=== PATIENT | male | born 1960 | race Caucasian/White ===

== ENCOUNTER 2022-07-31 11:11 | Outpatient (CLI) | payer OTHER, SELFPAY ==
[2022-07-31 12:15] LABS: Albumin* 4.4 g/dL (3.3-5.0)
[2022-07-31 12:16] LABS: Chloride* 92 mmol/L (96-114); Potassium* 3.4 mmol/L (3.6-5.1); Sodium* 136 mmol/L (135-149)
[2022-07-31 12:18] LABS: Aspartate Amino Transferase* 91 U/L (12-35); Bilirubin Total* 0.9 mg/dL (0.1-1.5); Carbon Dioxide* 36 mmol/L (20-32); Cholesterol* 227 mg/dL (90-199); Creatinine* 0.8 mg/dL (0.5-1.5); Estimated Glomerular Filt Rate 101 ml/min; Total Protein* 7.5 g/dL (6.0-8.3)
[2022-07-31 12:19] LABS: Alanine Aminotransferase* 47 U/L (4-50); Alkaline Phosphatase* 103 U/L (40-150); Blood Urea Nitrogen* 8 mg/dL (7-30); Calcium* 9.1 mg/dL (8.4-10.6); HDL Cholesterol* 48 mg/dL (>=40); LDL Cholesterol Calculated 119 mg/dL (<100); Triglycerides* 300 mg/dL (40-149)
[2022-07-31 12:33] LABS: Glucose* 118 mg/dL (60-115)
[2022-07-31 12:49] LABS: PSA Screen* 2.82 ng/mL (0.10-4.00)
== END 2022-07-31 11:12 | disposition home or self-care (01) ==
PROVIDERS: PCP Internal Medicine; Visit Provider Internal Medicine
DX: I10 Essential (primary) hypertension (principal); E78.5 Hyperlipidemia, unspecified; Z12.5 Encounter for screening for malignant neoplasm of prostate
CPT/HCPCS: 80053; 80061; 84153

== ENCOUNTER 2023-05-02 10:43 | Outpatient (CLI) | payer OTHER, SELFPAY ==
[2023-05-02 20:23] VITALS: BP 110/83; PULSE 86; RESP 18; TEMP 36.6; O2SAT 93; BMI 31.1
== END 2023-05-02 10:44 | disposition home or self-care (01) ==
PROVIDERS: PCP Internal Medicine; Visit Provider Internal Medicine
DX: E78.5 Hyperlipidemia, unspecified (principal); I10 Essential (primary) hypertension; F10.90 Alcohol use, unspecified, uncomplicated
CPT/HCPCS: 80053; 82077; 85610

== ENCOUNTER 2023-05-02 16:52 | Inpatient (IN) | payer OTHER, SELFPAY ==
[2023-05-02] VITALS (12 sets, daily range): BP systolic 109–117; BP diastolic 82–84; PULSE 80–86; RESP 16–20; TEMP 36.2–36.7; O2SAT 92–95; BMI 30.5
[2023-05-02] MEDS: 0.9 % SODIUM CHLORIDE 1000 ml 1,000 ML 125 ML IV (17:00)
--- NOTE | 2023-05-02 17:05 | ED_ITS ---
HPI - General Adult General Time Seen by Provider: 17:13 Date Seen: 05/02/23 Chief complaint: Abdominal Pain Stated complaint: low sodium Time Seen by Provider: 05/02/23 17:05 Source: patient and family Mode of arrival: ambulatory Limitations: no limitations History of Present Illness HPI narrative: Antonio is a 63-year-old male past medical history includes Ruff's esophagus, IBS, lower extremity edema, hypertension presents emerged department from home via private car with abdominal pain. Patient had recent labs done in clinic, primary care provider Dr. Leggett called the patient with the results and was concerned. Patient was seen last July for some lower extremity edema he was placed on some Lasix at that time, he is currently on hydrochlorothiazide. Patient states over the last month notice increased abdominal distention and fullness and increased in lower extremity edema, he has also had increasing worsening shortness of breath on exertion, patient denies any chest pain or abdominal pain, patient did have some bloody diarrhea stool a couple weeks ago, bright red but that is resolved, he denies any blood in the stool at this time, his oral intake has decreased, denies any nausea vomiting, no fevers or chills. Patient denies any smoking, he does drink vodka, with 7 up in Gatorade, he states a few a day. No history of any alcohol withdrawals or complications. Patient denies any orthopnea, no history of any heart failure, CAD. He presents with . Related Data Home Medications Medication Instructions Recorded Confirmed tadalafil 5 mg tablet (Cialis) 5 mg PO DAILY Erectile Dysfunction 05/02/23 05/02/23 Previous Rx's Medication Instructions Recorded omeprazole 40 mg capsule,delayed 40 mg PO BID GERD #180 caps 07/31/22 release atenolol 100 mg tablet 100 mg PO DAILY Hypertension #90 12/06/22 tabs furosemide 20 mg tablet 40 mg (2 x 20 mg) PO DAILY@0800 05/07/23 #60 tabs lactulose 10 gram/15 mL oral 20 g (30 mL) PO DAILY #946 mL 05/07/23 solution magnesium oxide 400 mg (241.3 mg 400 mg PO DAILY #30 tabs 05/07/23 magnesium) tablet potassium chloride 10 mEq 20 meq (2 x 10 mEq) PO DAILY #60 05/07/23 capsule,extended release caps spironolactone 100 mg tablet 100 mg PO QAM #30 tabs 05/07/23 Allergies Allergy/AdvReac Type Severity Reaction Status Date / Time No Known Allergies Allergy Verified 05/02/23 17:07 Review of Systems Status of ROS: Reports: 10 or more systems reviewed and unremarkable except as noted in History and below [facility] Medical History (Updated 05/10/23 @ 00:00 by Background Dajanina) Cirrhosis of liver ?K74.60 - Unspecified cirrhosis of liver (ICD-10) Irritable bowel syndrome (09/21/09) ?K58.9 - Irritable bowel syndrome without diarrhea (ICD-10) Ruff's esophagus (09/21/09) ?K22.70 - Ruff's esophagus without dysplasia (ICD-10) Alcohol use disorder ?F10.90 - Alcohol use, unspecified, uncomplicated (ICD-10) Hypertension (09/21/09) ?I10 - Essential (primary) hypertension (ICD-10) Hyperlipidemia ?E78.5 - Hyperlipidemia, unspecified (ICD-10) Diverticular disease of colon (10/21/11) ?K57.30 - Diverticulosis of large intestine without perforation or abscess without bleeding (ICD-10) Compartment syndrome of right lower extremity ?T79.A21A - Traumatic compartment syndrome of right lower extremity, initial encounter (ICD-10) Tubular adenoma ?D36.9 - Benign neoplasm, unspecified site (ICD-10) Erectile dysfunction ?N52.9 - Male erectile dysfunction, unspecified (ICD-10) Surgical History (Updated 05/02/23 @ 19:11 by Nazanin Cornejo MD) S/P colon resection (10/21/11) ?Z90.49 - Acquired absence of other specified parts of digestive tract (ICD- 10) S/P appy (10/21/11) ?Z90.49 - Acquired absence of other specified parts of digestive tract (ICD- 10) Social History What is your current living situation?: I presently have a place to live Problems where you live: no known problems Problems where you live details: None In the past 12 months, utilities in danger of being shut off: no In past 12 months, lack of transportation kept you from medical appts, meetings, work, or getting things needed for daily living: no In the past 12 mos, have been you worried that your food would run out before you had money to buy more?: never true In the past 12 mos, the food you bought just didn't last and you didn't have money to buy more?: never true Highest level of school completed/degree received: high school graduate Smoking Status: Former smoker Do you use any of these nicotine containing products: None Second hand tobacco smoke exposure: No How often do you have a drink containing alcohol: 4 or more times a week Alcohol type: hard liquor Alcohol type details: Vodka in [facility] with 7up How many standard drinks containing alcohol do you have on a typical day: 3 or 4 AUDIT-C Alcohol total score: 5 Non-prescribed substance use: denies use Caffeine: No How often does anyone, including family, friends and others, physically hurt you : never How often does anyone, including family, friends and others, insult or talk down to you: never How often does anyone, including family, friends and others, threaten you with harm: never How often does anyone, including family, friends and others, scream or curse at you: never Little interest or pleasure in doing things: not at all Feeling down, depressed, or hopeless: not at all service: No Exam Narrative: Exam Narrative: General: Obvious distress, lying comfortably, nontoxic in appearance HEENT: Pupils equal round reactive to light, extraocular muscles intact, mild sclera icterus. Neck: No JVD, supple Lungs: Mild bibasilar crackles. Heart; normal sinus rhythm S1-S2 Abdomen: Distended, soft, fluid wave present, bowel sounds present, nontender to palpation Muscle skeletal: +3 pitting edema from his groin to his feet bilaterally, CMS intact Neuro: Alert awake and oriented x3 Const: Vital Signs, click to edit/add: Vital Signs - 24 hr 05/02/23 17:05 05/02/23 19:23 05/02/23 19:24 Temperature 97.2 F L Pulse Rate [Pulse Oximeter] 80 Respiratory Rate 20 16 Blood Pressure [Ri ght Upper Arm] 115/84 109/82 Pulse Oximetry 95 92 Oxygen Delivery Me thod Room Air Room Air Room Air Course Course ED Course: 5:00 PM: AIDET performed. Vitals are normal at this time. Workup will include IV peripheral, 125 mL 0.9 normal saline per hour, CBC from clinic showed white blood cell count of 12.42, hemoglobin 11.8, platelets 401, neutrophils 10.40, INR 1.36, sodium 114, potassium 2.5, chloride 73, glucose 119, calcium 7.2, albumin 3.1, total bilirubin at 3.1, AST 94, normal ALT and alkaline phosphatase. No signs of any SBP or infection at this time patient would need admission sodium correction, patient to receive 40 mEq potassium chloride. Will add acute hepatitis panel, ammonia level and imaging including XR PA and lateral and CT abdomen pelvis with IV contrast. Patient and were in agreement Differential diagnosis include aortic aneurysm, mesentery ischemia, bowel perforation, bowel obstruction, volvulus as well as cholecystitis, hepatitis, pancreatitis, gastritis, GERD, diverticulitis, PUD, pyelonephritis/UTI, urolithiasis, testicular torsion, inflammatory bowel disease. Reevaluation(s) Time of Reevaluation #1: 19:59 Reevaluation #1: XR chest PA and lateral showed no acute cardiopulmonary process, patient was given the above care and did well, awaiting on CT abdomen pelvis with IV contrast, ammonia level within normal limits, spoke with Dr. Cornejo hospitalist on-call she accepts care of the patient to a [facility] surgical bed, patient and were in agreement this plan. Patient and family in agreement. Vital Signs Vital signs: Initial Vital Signs Temperature 97.2 F L 05/02/23 17:05 Temperature Source Temporal Artery Scan 05/02/23 17:05 Respiratory Rate 20 05/02/23 17:05 Blood Pressure 115/84 05/02/23 17:05 Blood Pressure Mean 94 05/02/23 17:05 Blood Pressure Position Supine 05/02/23 17:05 Pulse Oximetry 95 05/02/23 17:05 Oxygen Delivery Method Room Air 05/02/23 17:05 Vital Signs Temperature 97.2 F L 05/02/23 17:05 Respiratory Rate 20 05/02/23 17:05 Blood Pressure 115/84 05/02/23 17:05 Pulse Oximetry 95 05/02/23 17:05 Oxygen Delivery Method Room Air 05/02/23 17:05 Temperature 97.9 F 05/07/23 11:19 Pulse Rate 98 05/07/23 11:19 Respiratory Rate 18 05/07/23 11:19 Blood Pressure 104/88 05/07/23 11:19 Pulse Oximetry 98 05/07/23 11:19 Oxygen Delivery Method Room Air 05/07/23 08:59 Medications Administered Medications: Discontinued Medications Generic Name Dose Route Start Last Admin Trade Name Ananth PRN Reason Stop Dose Admin Atenolol 50 mg 05/07/23 09:00 05/07/23 08:34 Atenolol 50 Mg Tablet PO 50 mg DAILY YFN Administration Calcium Gluconate/Sodium Chloride 1,000 mg 05/04/23 08:25 05/04/23 09:08 Calcium Gluc 1,000mg/50 Ml Bag IVPB 05/04/23 08:26 1,000 mg ONCE ONE Administration Desmopressin Acetate 1 mcg 05/02/23 19:30 05/04/23 19:31 Desmopressin Acetate 4 Mcg/Ml Inj IVP 1 mcg Q6H YFN Administration Enoxaparin Sodium 40 mg 05/02/23 21:00 05/06/23 20:31 Enoxaparin 40 Mg/0.4 Ml Inj SUBCUT 40 mg HS YFN Administration Folic Acid 1 mg 05/03/23 09:00 05/07/23 08:35 Folic Acid 1 Mg Tablet PO 1 mg DAILY YFN Administration Furosemide 20 mg 05/05/23 08:25 05/05/23 09:07 Furosemide 20 Mg Tablet PO 20 mg DAILY@0800 YFN Administration Furosemide 40 mg 05/06/23 08:00 05/06/23 07:58 Furosemide 20 Mg Tablet PO 40 mg DAILY@0800 YFN Administration Furosemide 20 mg 05/05/23 16:40 05/05/23 18:42 Furosemide 20 Mg Tablet PO 05/05/23 16:41 20 mg ONCE ONE Administration Furosemide 80 mg 05/07/23 08:00 05/07/23 08:35 Furosemide 20 Mg Tablet PO 80 mg DAILY@0800 YFN Administration Gabapentin 100 mg 05/02/23 21:00 05/04/23 13:54 Gabapentin 100 Mg Capsule PO 100 mg TID YFN Administration Gabapentin 300 mg 05/04/23 21:00 05/07/23 08:34 Gabapentin 300 Mg Capsule PO 300 mg TID YFN Administration Sodium Chloride 1,000 mls @ 125 mls/hr 05/02/23 17:08 05/02/23 21:09 0.9 % Sodium Chloride 1000 Ml IV 0 mls/hr .Q8H YFN Infusion Sodium Chloride 500 mls @ 30 mls/hr 05/02/23 19:30 05/04/23 13:53 3 % Sodium Chloride 500 Ml IV 30 mls/hr .[id number] YFN Administration Thiamine HCl 250 mg/ Sodium 102.5 mls @ 102.5 mls/hr 05/02/23 21:00 05/05/23 14:07 Chloride IVPB 05/05/23 14:01 102.5 mls/hr TID YFN Administration Magnesium Sulfate 4 gm in 100 mls @ 25 mls/hr 05/02/23 22:04 05/02/23 23:16 Magnesium Iv IVPB 05/03/23 02:03 25 mls/hr ONCE ONE Administration Albumin Human 25 gm in 100 mls @ 100 mls/hr 05/03/23 14:26 05/03/23 18:27 Albumin Human 25% IVPB 05/03/23 15:25 Infused ONCE ONE Infusion Lactulose 20 gm 05/05/23 21:00 05/07/23 08:38 Lactulose 20 Gm/30 Ml PO 20 gm BID YFN Administration Magnesium Oxide 400 mg 05/05/23 09:00 05/07/23 08:35 Magnesium Oxide 400 Mg Tablet PO 400 mg DAILY YFN Administration Melatonin 3 - 6 mg 05/02/23 19:24 05/02/23 21:04 Melatonin 3 Mg Tablet PO 3 mg HS PRN Administration Multivitamins/Minerals 1 tab 05/03/23 09:00 05/07/23 08:33 Multivitamin/Minerals 1 Tablet PO 1 tab DAILY YFN Administration Omeprazole 40 mg 05/03/23 07:00 05/04/23 06:32 Omeprazole [address] PO 40 mg DAILY@0700 YFN Administration Omeprazole 40 mg 05/02/23 21:00 05/07/23 08:34 Omeprazole [address] PO 40 mg BID YFN Administration Pantoprazole Sodium 40 mg 05/02/23 19:24 05/02/23 21:03 Pantoprazole Sodium 40 Mg Inj IVP 05/02/23 19:25 40 mg ONCE ONE Administration Potassium Bicarbonate 50 meq 05/02/23 22:05 05/03/23 09:03 Potassium Bicarb 25 Meq Effervescent Tab PO 50 meq BIDWM YFN Administration Potassium Bicarbonate 25 meq 05/04/23 08:15 05/04/23 09:08 Potassium Bicarb 25 Meq Effervescent Tab PO 05/04/23 10:16 Not Given Q2H YFN Potassium Chloride 40 meq 05/02/23 18:03 05/02/23 18:14 Potassium Chloride 10 Meq Capsule Er PO 05/02/23 18:04 40 meq ONCE ONE Administration Potassium Chloride 20 meq 05/03/23 18:49 05/07/23 08:36 Potassium Chloride 10 Meq Capsule Er PO 20 meq BIDWM YFN Administration Potassium Chloride 20 meq 05/04/23 09:31 05/04/23 11:25 Potassium Chloride 10 Meq Capsule Er PO 05/04/23 09:32 20 meq ONCE ONE Administration Sodium Chloride 5 ml 05/02/23 19:24 05/04/23 01:36 Sodium Chloride 0.9 % (Flush) 10 Ml Syringe IVF 5 ml .FLUSH PRN Administration Sodium Chloride 5 ml 05/02/23 21:00 05/07/23 10:58 Sodium Chloride 0.9 % (Flush) 10 Ml Syringe IVF Not Given BID YFN Sodium Chloride 1 gm 05/03/23 14:35 05/05/23 07:58 Sodium Chloride 1 Gm Tablet PO 1 gm TIDWM YFN Administration Spironolactone 50 mg 05/05/23 09:00 05/05/23 09:07 Spironolactone 25 Mg Tablet PO 50 mg DAILY YFN Administration Spironolactone 100 mg 05/06/23 09:00 05/06/23 07:58 Spironolactone 25 Mg Tablet PO 100 mg DAILY YFN Administration Spironolactone 50 mg 05/05/23 16:40 05/05/23 18:41 Spironolactone 25 Mg Tablet PO 05/05/23 16:41 50 mg ONCE ONE Administration Spironolactone 200 mg 05/07/23 09:00 05/07/23 08:37 Spironolactone 100 Mg Tablet PO 200 mg DAILY YFN Administration Medical Decision Making Lab Data Labs: Lab Results 05/02/23 05/02/23 05/02/23 Range/Units 17:05 17:38 19:07 WBC 12.37 H (4.50-11.00) K/uL RBC 3.25 L (4.30-5.90) m/uL Hgb 11.6 L (13.5-17.5) gm/dL Hct 32.3 L (37.0-53.0) % MCV 99 (80-100) fL MCH 36 H (26-34) pg MCHC 36 (32-36) gm/dL RDW Coeff of Song 13.2 (11.5-15.5) % Plt Count 449 H (140-440) K/uL Neut % (Auto) 84.6 H (42.0-72.0) % Lymph % (Auto) 7.8 L (20-44) % [place] % (Auto) 6.7 (0.0-11.0) % Eos % (Auto) 0.5 (0.0-7.0) % Baso % (Auto) 0.2 (0.0-3.0) % Neut # (Auto) 10.50 H (1.7-7.0) K/uL Lymph # (Auto) 1.00 (0.90-2.90) K/uL [place] # (Auto) 0.80 (0.00-0.90) K/UL Eos # (Auto) 0.10 (0.00-0.50) K/uL Baso # (Auto) 0.00 (0.00-0.30) K/uL Abs Immat Gran (auto) 0.00 (0.00-0.30) K/uL Imm/Tot Granulo (auto) 0.2 % VBG pH 7.532 H (7.32-7.43) VBG pCO2 37 L (40-50) mmHG VBG pO2 33.3 (25-47) mmHG VBG HCO3 31 H (21-28) mmol/L Sodium 114 L* (135-149) mmol/L Potassium 2.5 L* (3.6-5.1) mmol/L Chloride 73 L (96-114) mmol/L Carbon Dioxide 28 (20-32) mmol/L Anion Gap 13 (7-15) mEq/L BUN 12 (7-30) mg/dL Creatinine 0.8 (0.5-1.5) mg/dL Estimated Creat Clear 71.61 Estimated GFR 100 ml/min Glucose 111 (60-115) mg/dL Lactate Cancelled Calcium 7.2 L (8.4-10.6) mg/dL Magnesium 1.3 L (1.5-2.6) mg/dL Total Bilirubin 3.2 H (0.1-1.5) mg/dL Direct Bilirubin 1.1 H (0.0-0.5) mg/dL GGT 176 H (8-55) U/L AST 91 H (12-35) U/L ALT 26 (4-50) U/L Alkaline Phosphatase 190 H (40-150) U/L Ammonia 27.0 (13.1-30.0) umol/L NT-Pro-B Natriuret Pep 754 pg/mL Total Protein 6.7 (6.0-8.3) g/dL Albumin 3.3 (3.3-5.0) g/dL Lipase 263 (23-300) U/L TSH 3.470 (0.270-4.20) uIU/mL Lab Acknowledgement Test Added Discharge Plan Discharge Clinical Impression: Abdominal ascites, Bilateral edema of lower extremity, Hyponatremia, Hypokalemia Patient Disposition: Admitted As Inpatient Condition: Improved Activity Level: Activity as Tolerated Discharge Diet: Regular and 2 gm Sodium
--- NOTE | 2023-05-02 17:24 | CRLHL7_ITS ---
For Patients: As a result of the Century Cures Act, medical imaging exams and procedure reports are released immediately into your electronic medical record. You may view this report before your referring provider. If you have questions, please contact your health care provider. INDICATION: Shortness of breath. TECHNIQUE: Chest radiographs, two views. COMPARISON: Chest radiographs 10/10/2011 FINDINGS: Lines/Tubes/Devices: None. Mediastinum: Normal cardiac silhouette. Tortuous aorta. Lungs: Low lung volumes limit evaluation. Linear bandlike opacifications of the lung bases likely due to subsegmental atelectasis and/or scarring. No focal consolidation. Pleura: No pleural effusions or pneumothorax. Bones: No acute osseous abnormalities. Upper Abdomen: Unremarkable. IMPRESSION: Low lung volumes limit evaluation. No acute cardiopulmonary process. Dictated by Stephen Qureshi MD @ 05/02/2023 7:38:53 PM (Electronically Signed)
--- NOTE | 2023-05-02 17:27 | CRLHL7_ITS ---
For Patients: As a result of the 21st Century Cures Act, medical imaging exams and procedure reports are released immediately into your electronic medical record. You may view this report before your referring provider. If you have questions, please contact your health care provider. INDICATION: massive ascites, elevated Bilirubin levels. no abdomen PAIN TECHNIQUE: CT abdomen and pelvis acquired with 95 cc Isovue 370 IV contrast. COMPARISON: None. FINDINGS: Lower chest: Subsegmental atelectasis remains basilar linear opacities likely subsegmental atelectasis. Atherosclerotic calcifications of the aorta and its branches. Coronary artery calcifications. Mitral annular calcifications. Trace pericardial fluid. ABDOMEN: Liver: Heterogeneous enhancements of the liver. Subcentimeter hypodensity within the right hepatic lobe is too small to characterize. Gallbladder and biliary: Normal gallbladder without radiopaque stone. Normal caliber bile ducts. Spleen: Normal size and enhancement. Pancreas: Normal enhancement without peripancreatic inflammatory changes or ductal dilatation. Adrenal glands: Normal adrenal glands. Kidneys and ureters: Normal enhancement. No radio-opaque calculi. No hydroureteronephrosis. GI tract: The stomach is relatively decompressed. Normal caliber small and large bowel loops. Appendix is not definitively visualized. Partial sigmoid resection and anastomosis. Colonic diverticula without diverticulitis. Vascular structures: Atherosclerotic calcifications of the aorta and its branches. Coronary artery calcifications. Mitral annular calcifications. Recanalized umbilical vein. Patent portal veins. Narrowing of the hepatic veins likely secondary to hepatic edema. Lymph nodes: No lymphadenopathy in the abdomen or pelvis by size criteria. Peritoneum: Large volume abdominal ascites. No focal drainable fluid collection. Small amount of free fluid tracking into the right inguinal canal. PELVIS: Genitourinary system: Urinary bladder is decompressed. SKELETAL STRUCTURES AND SOFT TISSUES: No suspicious lytic or blastic lesions. IMPRESSION: Large volume abdominal ascites. Heterogeneous enhancement of the liver. Narrowing of the hepatic veins. Recanalized umbilical vein. Constellation of findings favor underlying hepatitis with portal hypertension. Recommend correlation with patient clinical history and laboratory values for further assessment. Please note that all CT scans at this facility use dose modulation, iterative reconstruction, and/or weight-based dosing when appropriate to reduce radiation dose to as low as reasonably achievable. Dictated by Marc Daly MD @ 05/02/2023 7:59:14 PM (Electronically Signed)
[2023-05-02 17:34] LABS: Basophils Percent Auto 0.2 % (0.0-3.0); Eosinophils Percent Auto 0.5 % (0.0-7.0); Hematocrit 32.3 % (37.0-53.0); Hemoglobin* 11.6 gm/dL (13.5-17.5); Immature Granulocytes Pct Auto 0.2 %; Lymphocytes Percent Auto 7.8 % (20-44); Mean Corpuscular HGB Conc 36 gm/dL (32-36); Mean Corpuscular Hemoglobin 36 pg (26-34); Mean Corpuscular Volume 99 fL (80-100); Monocytes Percent Auto 6.7 % (0.0-11.0); Neutrophils Percent Auto 84.6 % (42.0-72.0); Platelet Count* 449 K/uL (140-440); RDW Coefficient of Variation % 13.2 % (11.5-15.5); Red Blood Count 3.25 m/uL (4.30-5.90); White Blood Count* 12.37 K/uL (4.50-11.00)
[2023-05-02 17:36] LABS: Slide Review Reflex No
[2023-05-02 17:44] LABS: Albumin* 3.3 g/dL (3.3-5.0)
[2023-05-02 17:45] LABS: Chloride* 73 mmol/L (96-114)
[2023-05-02 17:47] LABS: Aspartate Amino Transferase* 91 U/L (12-35); Bilirubin Direct* 1.1 mg/dL (0.0-0.5); Bilirubin Total* 3.2 mg/dL (0.1-1.5); Carbon Dioxide* 28 mmol/L (20-32); Creatinine* 0.8 mg/dL (0.5-1.5); Est. Creatinine Clearance* 71.61; Estimated Glomerular Filt Rate 100 ml/min; Total Protein* 6.7 g/dL (6.0-8.3)
[2023-05-02 17:48] LABS: Alanine Aminotransferase* 26 U/L (4-50); Alkaline Phosphatase* 190 U/L (40-150); Anion Gap 13 mEq/L (7-15); Blood Urea Nitrogen* 12 mg/dL (7-30); Calcium* 7.2 mg/dL (8.4-10.6); Glucose* 111 mg/dL (60-115); Lipase* 263 U/L (23-300)
[2023-05-02 17:54] LABS: Potassium* 2.5 mmol/L (3.6-5.1); Sodium* 114 mmol/L (135-149)
[2023-05-02] MEDS: POTASSIUM CHLORIDE 10 MEQ CAPSULE ER 40 MEQ PO (18:14)
[2023-05-02 18:22] LABS: NT Pro B Type NatriureticPept* 754 pg/mL
[2023-05-02 19:22] LABS: HCO3 VBG 31 mmol/L (21-28); PCO2 VBG 37 mmHG (40-50); PO2 VBG 33.3 mmHG (25-47); pH VBG 7.532 (7.32-7.43)
[2023-05-02 19:26] LABS: Gamma Glutamyl Transpeptidase* 176 U/L (8-55); Magnesium* 1.3 mg/dL (1.5-2.6)
--- NOTE | 2023-05-02 19:33 | P.IMHP_ITS ---
Hospitalist- H&P: HPI History of Present Illness Date Seen: 05/02/23 Chief complaint: low sodium Narrative: ADMISSION HISTORY AND PHYSICAL - HOSPITALIST Chief Complaint: Dr. Leggett told me to go in; my labs are low HPI: 63-year-old white male with a longstanding history of alcohol use disorder presented to his PCP, Dr. Leggett, this morning for increasing abdominal girth and leg swelling. Patient states that it all began 3-4 weeks ago, in mid to late March. He feels over the last 3 weeks his abdomen has gotten much bigger. His increasing abdominal girth is associated with some shortness of breath and discomfort. The edema in his legs is also getting worse over the last several weeks. He is a daily vodka drinker. He states he used to drink much heavier when he was younger. That he doesn't drink that much anymore. No tobacco. No drug use. He used to work for [employer] and the [employer] department and has been laid off for the last 14 months. He is not working. He has no history of cardiac disease other than hypertension, no history of cancer, no history of liver disease or kidney disease. Denies hx of alcohol withdrawal. Specifically denies fever, abdominal pain, chills, rigors, confusion. Last drink 1 pm 05/01 ER COURSE: Normal saline and oral potassium Abdomen pelvis CT with notable ascites Staff confirmed the severe hyponatremia and hypokalemia, likely decompensated liver failure and asked the hospital medicine team to manage CODE STATUS: FULL CODE EMERGENCY CONTACT PLAN: Juana Dillard? ?Rel to [facility]? [phone] I've updated the PFSH, medications and allergies in the Expanse tabs. INVESTIGATIONS: LABS/MICRO/ECG/IMAGING Weight 89.8 kg, blood pressure 109/71 this morning in clinic with Dr. eLggett Weight 90.7 kg, blood pressure 132/84 in July [address] Springer CBC reflects a mild leukocytosis 12.4, normal MCV. Anemic at 11.6, platelet count slightly reactive 449. INR 1.4 Sodium this morning was 115 at a clinic visit, 114 at ER presentation. Previous sodium 136 in July of 2022 Potassium is 3.1 this morning, 2.5 by the time he got to the ED Total bilirubin 3.2, direct bilirubin 1.1, AST 91, ALT 26, alk-phos 190 Ammonia level 27 BNP 754 Lipase 263 Blood gas 7.5, pCO2 37, bicarb 31 consistent with a metabolic alkalosis Pending GGT Pending TSH 2 blood cultures sent to the lab EKG NSR, low voltage CT Abd/Pelvis Large volume abdominal ascites. Heterogeneous enhancement of the liver. Narrowing of the hepatic veins. Recanalized umbilical vein. Constellation of findings favor underlying hepatitis with portal hypertension. Recommend correlation with patient clinical history and laboratory values for further assessment. REVIEW OF SYSTEMS: 12-point ROS completed with patient and negative unless otherwise stated in HPI or below. PHYSICAL EXAM: CONSTITUTIONAL: Conversive, good historian. A/O. Knows setting and context. makes a joke. VITAL SIGNS: see record. HEENT: Normocephalic, atraumatic. PERRL, EOMI, conjunctivae pink, no scleral icterus. Ears and nose externally normal. Pharynx normal. NECK: No JVD. No carotid bruit, no thyromegaly, no adenopathy. CHEST: Clear to auscultation bilaterally HEART: S1 and S2 normal. No harsh murmurs. Edema 3+ to mid thigh ABDOMEN: markedly distended - tense MUSCULOSKELETAL: No gross joint deformity or swelling. NEURO: Cranial nerves intact. Grossly intact. No asymmetric findings. SKIN: No rashes, petechiae, concerning changes PSYCHIATRIC: Euthymic. ADMIT TO MEDSURG: CCU DVT: Lovenox GI: PO intake with fluid restriction Time spent: Today I spent 75 minutes seeing the patient, discussing the patient with ER staff, reviewing Expanse and EPIC notes/diagnostics, discussing the care plan with our care time that includes social work, PT/OT, pharmacy, RT, senior care and documenting my impressions and plan in the medical record. [facility] Medical History (Updated 05/02/23 @ 22:10 by Nazanin Cornejo MD) Irritable bowel syndrome (09/21/09) ?K58.9 - Irritable bowel syndrome without diarrhea (ICD-10) Ruff's esophagus (09/21/09) ?K22.70 - Ruff's esophagus without dysplasia (ICD-10) Alcohol use disorder ?F10.90 - Alcohol use, unspecified, uncomplicated (ICD-10) Hypertension (09/21/09) ?I10 - Essential (primary) hypertension (ICD-10) Hyperlipidemia ?E78.5 - Hyperlipidemia, unspecified (ICD-10) Diverticular disease of colon (10/21/11) ?K57.30 - Diverticulosis of large intestine without perforation or abscess without bleeding (ICD-10) Compartment syndrome of right lower extremity ?T79.A21A - Traumatic compartment syndrome of right lower extremity, initial encounter (ICD-10) Tubular adenoma ?D36.9 - Benign neoplasm, unspecified site (ICD-10) Erectile dysfunction ?N52.9 - Male erectile dysfunction, unspecified (ICD-10) Surgical History (Updated 05/02/23 @ 19:11 by Nazanin Cornejo MD) S/P colon resection (10/21/11) ?Z90.49 - Acquired absence of other specified parts of digestive tract (ICD- 10) S/P appy (10/21/11) ?Z90.49 - Acquired absence of other specified parts of digestive tract (ICD- 10) Social History What is your current living situation?: I presently have a place to live Problems where you live: no known problems Problems where you live details: None In the past 12 months, utilities in danger of being shut off: no In past 12 months, lack of transportation kept you from medical appts, meetings, work, or getting things needed for daily living: no In the past 12 mos, have been you worried that your food would run out before you had money to buy more?: never true In the past 12 mos, the food you bought just didn't last and you didn't have money to buy more?: never true Highest level of school completed/degree received: high school graduate Smoking Status: Former smoker Do you use any of these nicotine containing products: None Second hand tobacco smoke exposure: No How often do you have a drink containing alcohol: 4 or more times a week Alcohol type: hard liquor Alcohol type details: Vodka in Gatorade with 7up How many standard drinks containing alcohol do you have on a typical day: 3 or 4 AUDIT-C Alcohol total score: 5 Non-prescribed substance use: denies use Caffeine: No How often does anyone, including family, friends and others, physically hurt you : never How often does anyone, including family, friends and others, insult or talk down to you: never How often does anyone, including family, friends and others, threaten you with harm: never How often does anyone, including family, friends and others, scream or curse at you: never Little interest or pleasure in doing things: not at all Feeling down, depressed, or hopeless: not at all service: No Meds Home Medications and Allergies Home Medications Medication Instructions Recorded Confirmed Type aspirin 81 mg chewable tablet 81 mg PO DAILY 12/08/21 05/02/23 History tadalafil 5 mg tablet (Cialis) 5 mg PO DAILY Erectile Dysfunction 05/02/23 05/02/23 History Allergies Allergy/AdvReac Type Severity Reaction Status Date / Time No Known Allergies Allergy Verified 05/02/23 17:07 Exam Const: Vital Signs, click to edit/add: Vital Signs - 24 hr 05/02/23 17:05 05/02/23 19:23 05/02/23 19:24 Temperature 97.2 F L Pulse Rate [Pulse Oximeter] 80 Respiratory Rate 20 16 Blood Pressure [Ri ght Upper Arm] 115/84 109/82 Pulse Oximetry 95 92 Oxygen Delivery Me thod Room Air Room Air Room Air Hospitalist - H&P: Result Labs Labs: Short CBC 05/02/23 Range/Units 17:05 WBC 12.37 H (4.50-11.00) K/uL Hgb 11.6 L (13.5-17.5) gm/dL Hct 32.3 L (37.0-53.0) % Plt Count 449 H (140-440) K/uL BMP 05/02/23 17:05 Sodium 114 L* Potassium 2.5 L* Chloride 73 L Carbon Dioxide 28 BUN 12 Creatinine 0.8 Glucose 111 Calcium 7.2 L Liver Function 05/02/23 Range/Units 17:05 Total Bilirubin 3.2 H (0.1-1.5) mg/dL Direct Bilirubin 1.1 H (0.0-0.5) mg/dL AST 91 H (12-35) U/L ALT 26 (4-50) U/L Alkaline Phosphatase 190 H (40-150) U/L Albumin 3.3 (3.3-5.0) g/dL Assessment and Plan Assessment and plan (1) Hyponatremia: Problem comment: -received normal saline in the ED. given his risk for osmotic demyelination syndrome (concurrent hypokalemia, alcohol use disorder, liver disease) I will infuse 3% saline with IV desmopressin. -CCU status -follow electrolytes hourly and then space out as indicated -fluid restriction, salt tabs, oral potassium, IV magnesium. Status: Acute (2) Hypokalemia: Problem comment: -received p.o., single dose, in the ED -will follow with IV/PO replacement as necessary Status: Acute (3) Hypomagnesemia: Problem comment: -IV replacement Status: Acute (4) Liver disease: Problem comment: -new diagnosis - likely from chronic alcohol use. -MELD 3.0 05/02 (upon presentation/admission) 21 -will need diagnostic and therapeutic paracentesis -ultrasound in the morning -use of loop diuretics and spironolactone as an inpatient once electrolytes have stabilized -concern for SBP is low given clinical presentation, lack of fever/pain Status: Acute (5) Alcohol use disorder: Problem comment: -daily vodka drinker (last drink 1 pm 05/01/23) -thiamine, multivitamin, folate replacement -[facility] protocols with ativan -initiating gabapentin 100 mg t.i.d. -consider early use of fixed/scheduled phenobarbital Status: Acute (6) Abdominal ascites: Problem comment: -general surg consult for paracentsis -furosemide/spironolactone regimen to begin once sodium/potassium/mag are not critically low -consider culturing his abdominal ascites, not currently on antibiotics -IV PPI -Chad wrap compression to his legs -fluid restriction Status: Acute (7) Bilateral edema of lower extremity: Problem comment: -see #5 Status: Acute (8) Hypertension: Problem comment: -amlodipine, atenolol, hydrochlorothiazide (all on hold as of admission 05/02) -certainly will hold the hydrochlorothiazide going forward. Status: Acute (9) Ruff's esophagus: Problem comment: -has had surveillance EGDS -on PPI Status: Acute
[2023-05-02] MEDS: DESMOPRESSIN ACETATE 4 MCG/ML inj 1 MCG IVP (21:01)
[2023-05-02] MEDS: PANTOPRAZOLE SODIUM 40 MG INJ IVP (21:03)
[2023-05-02] MEDS: MELATONIN 3 MG TABLET PO (21:04)
[2023-05-02] MEDS: ENOXAPARIN 40 MG/0.4 ML INJ SUBCUT (21:04)
[2023-05-02] MEDS: GABAPENTIN 100 MG CAPSULE PO (21:04)
[2023-05-02] MEDS: SODIUM CHLORIDE 0.9 % (FLUSH) 10 ML SYRINGE 5 ML IVF (21:06)
[2023-05-02 21:16] LABS: Carbon Dioxide* 31 mmol/L (20-32); Creatinine* 0.8 mg/dL (0.5-1.5); Est. Creatinine Clearance* 71.61; Estimated Glomerular Filt Rate 100 ml/min
[2023-05-02 21:17] LABS: Blood Urea Nitrogen* 11 mg/dL (7-30); Glucose* 104 mg/dL (60-115)
[2023-05-02 21:20] LABS: Sodium* 115 mmol/L (135-149)
[2023-05-02 21:21] LABS: Anion Gap 9 mEq/L (7-15); Chloride* 75 mmol/L (96-114); Potassium* 3.1 mmol/L (3.6-5.1)
[2023-05-02] MEDS: THIAMINE 250 MG in 0.9 % SODIUM CHLORIDE 100 ml 100 ML 102.5 MG IVPB (21:58)
[2023-05-02] MEDS: POTASSIUM BICARB 25 MEQ EFFERVESCENT TAB 50 MEQ PO (23:14)
[2023-05-02] MEDS: OMEPRAZOLE 20 MG CAPSULE DR 40 MG PO (23:15)
[2023-05-02] MEDS: MAGNESIUM IV 4 GM/100 ML PIGGYBACK IVPB (23:16)
[2023-05-03] VITALS (23 sets, daily range): BP systolic 92–112; BP diastolic 52–78; PULSE 85–95; RESP 16–20; TEMP 36.7–37.6; O2SAT 90–94
[2023-05-03 00:02] LABS: Amphetamine Screen Urine Negative (Negative); Barbiturate Screen Urine Negative (Negative); Benzodiazepines Screen Urine Negative (Negative); Cannabinoid Screen Urine Negative (Negative); Cocaine Screen Urine Negative (Negative); Methadone Screen Urine Negative (Negative); Methamphetamines Screen Urine Negative (Negative); Opiate Screen Urine Negative (Negative); Oxycodone Screen Urine Negative (Negative); Phencyclidine Screen Urine Negative (Negative); Tricyclic Antidepressant Urine Negative (Negative)
[2023-05-03 01:00] LABS: Chloride* 78 mmol/L (96-114); Potassium* 3.3 mmol/L (3.6-5.1)
[2023-05-03 01:03] LABS: Anion Gap 11 mEq/L (7-15); Blood Urea Nitrogen* 12 mg/dL (7-30); Carbon Dioxide* 27 mmol/L (20-32); Creatinine* 0.8 mg/dL (0.5-1.5); Est. Creatinine Clearance* 71.61; Estimated Glomerular Filt Rate 100 ml/min; Glucose* 111 mg/dL (60-115)
[2023-05-03 01:04] LABS: Sodium* 116 mmol/L (135-149)
[2023-05-03] MEDS: DESMOPRESSIN ACETATE 4 MCG/ML inj 1 MCG IVP ×4 (01:27→19:08)
[2023-05-03 02:54] LABS: Chloride* 79 mmol/L (96-114)
[2023-05-03 02:55] LABS: Potassium* 3.4 mmol/L (3.6-5.1)
[2023-05-03 02:57] LABS: Creatinine* 0.8 mg/dL (0.5-1.5); Est. Creatinine Clearance* 71.61; Estimated Glomerular Filt Rate 100 ml/min
[2023-05-03 02:58] LABS: Anion Gap 10 mEq/L (7-15); Blood Urea Nitrogen* 12 mg/dL (7-30); Carbon Dioxide* 28 mmol/L (20-32); Glucose* 112 mg/dL (60-115)
[2023-05-03 02:59] LABS: Sodium* 117 mmol/L (135-149)
--- NOTE | 2023-05-03 03:38 | PC.NURSE ---
Pt came to floor @ 1940. Na was 114. Dr stopped NS @ 125 and started 3% Hypertonic NS at 30ml/hr. Intent to gradually increase Na without large bumps. Pt up IND/SBA to BR voiding [place] colored urine. Pt Abdomen very large with ascites. Reporting Zero pain. Pt very irritated with staff for interruptions in sleep due to cares and blood draws. Pt reports drinking 3-4 Vodka drinks per day. CIWAs unremarkable to this point. Afebrile. Tele NSR.
[2023-05-03] MEDS: OMEPRAZOLE 20 MG CAPSULE DR 40 MG PO ×2 (05:13→21:29)
[2023-05-03] MEDS: SODIUM CHLORIDE 0.9 % (FLUSH) 10 ML SYRINGE 5 ML IVF ×2 (08:07→21:30)
--- NOTE | 2023-05-03 08:07 | PM.GSCN ---
History of Present Illness Consult details Date Seen: 05/03/23 Consult date: 05/03/23 Narrative: Patient admitted for new onset abdominal ascites, hyponatremia and bilateral lower extremity edema. He does have a heavy drinking history. He reports that he started to cut back a few months ago, but still has ?a drink per day?. A drink for him is about 2 shots. He has never had anything like this before. He started to notice that his belly was getting bigger about 1 month earlier and it continued to increase in size. He denies any current abdominal pain, shortness of breath or fevers. He is alert and oriented. His abdominal surgical history is positive for a colectomy secondary to diverticulitis. Review of Systems Status of ROS: Reports: 6 or more systems reviewed and unremarkable except as noted in History and below [facility] Medical History (Updated 05/02/23 @ 22:10 by Nazanin Cornejo MD) Irritable bowel syndrome (09/21/09) ?K58.9 - Irritable bowel syndrome without diarrhea (ICD-10) Ruff's esophagus (09/21/09) ?K22.70 - Ruff's esophagus without dysplasia (ICD-10) Alcohol use disorder ?F10.90 - Alcohol use, unspecified, uncomplicated (ICD-10) Hypertension (09/21/09) ?I10 - Essential (primary) hypertension (ICD-10) Hyperlipidemia ?E78.5 - Hyperlipidemia, unspecified (ICD-10) Diverticular disease of colon (10/21/11) ?K57.30 - Diverticulosis of large intestine without perforation or abscess without bleeding (ICD-10) Compartment syndrome of right lower extremity ?T79.A21A - Traumatic compartment syndrome of right lower extremity, initial encounter (ICD-10) Tubular adenoma ?D36.9 - Benign neoplasm, unspecified site (ICD-10) Erectile dysfunction ?N52.9 - Male erectile dysfunction, unspecified (ICD-10) Surgical History (Updated 05/02/23 @ 19:11 by Nazanin Cornejo MD) S/P colon resection (10/21/11) ?Z90.49 - Acquired absence of other specified parts of digestive tract (ICD-10) S/P appy (10/21/11) ?Z90.49 - Acquired absence of other specified parts of digestive tract (ICD-10) Social History What is your current living situation?: I presently have a place to live Problems where you live: no known problems Problems where you live details: None In the past 12 months, utilities in danger of being shut off: no In past 12 months, lack of transportation kept you from medical appts, meetings, work, or getting things needed for daily living: no In the past 12 mos, have been you worried that your food would run out before you had money to buy more?: never true In the past 12 mos, the food you bought just didn't last and you didn't have money to buy more?: never true Highest level of school completed/degree received: high school graduate Smoking Status: Former smoker Do you use any of these nicotine containing products: None Second hand tobacco smoke exposure: No How often do you have a drink containing alcohol: 4 or more times a week Alcohol type: hard liquor Alcohol type details: Vodka in [facility] with 7up How many standard drinks containing alcohol do you have on a typical day: 3 or 4 AUDIT-C Alcohol total score: 5 Non-prescribed substance use: denies use Caffeine: No How often does anyone, including family, friends and others, physically hurt you: never How often does anyone, including family, friends and others, insult or talk down to you: never How often does anyone, including family, friends and others, threaten you with harm: never How often does anyone, including family, friends and others, scream or curse at you: never Little interest or pleasure in doing things: not at all Feeling down, depressed, or hopeless: not at all service: No Meds Home Medications and Allergies Home Medications Medication Instructions Recorded Confirmed Type aspirin 81 mg chewable tablet 81 mg PO DAILY 12/08/21 05/02/23 History tadalafil 5 mg tablet (Cialis) 5 mg PO DAILY Erectile Dysfunction 05/02/23 05/02/23 History Allergies Allergy/AdvReac Type Severity Reaction Status Date / Time No Known Allergies Allergy Verified 05/02/23 17:07 Exam Narrative: Exam Narrative: General: Alert and oriented, no acute distress. Nontoxic Respiratory: Equal breath rise, maintained on room air CV: Well perfused Abdomen: Significant girth with marked distension, tense abdomen. Lower midline incision well healed. Positive fluid shift. Const: Vital Signs, click to edit/add: Vital Signs - 24 hr 05/02/23 17:05 05/02/23 19:23 05/02/23 19:24 Temperature 97.2 F L Pulse Rate Pulse Rate [Left R adial] Pulse Rate [Pulse Oximeter] 80 Respiratory Rate 20 16 Blood Pressure [Le ft Arm] Blood Pressure [Ri ght Upper Arm] 115/84 109/82 Pulse Oximetry 95 92 Oxygen Delivery Me thod Room Air Room Air Room Air 05/02/23 21:12 05/02/23 21:13 05/02/23 21:15 Temperature 97.2 F L 97.2 F L Pulse Rate Pulse Rate [Left R adial] Pulse Rate [Pulse Oximeter] Respiratory Rate 18 18 18 Blood Pressure [Le ft Arm] Blood Pressure [Ri ght Upper Arm] Pulse Oximetry 93 93 93 Oxygen Delivery Me thod Room Air Room Air Room Air 05/02/23 21:15 05/02/23 21:17 05/02/23 21:24 Temperature 97.2 F L Pulse Rate 85 Pulse Rate [Left R adial] 86 Pulse Rate [Pulse Oximeter] Respiratory Rate 18 Blood Pressure [Le ft Arm] 110/83 Blood Pressure [Ri ght Upper Arm] Pulse Oximetry 93 93 Oxygen Delivery Me thod Room Air 05/02/23 21:31 05/02/23 22:09 05/02/23 22:28 Temperature 97.2 F L Pulse Rate Pulse Rate [Left R adial] 85 85 Pulse Rate [Pulse Oximeter] Respiratory Rate 18 18 Blood Pressure [Le ft Arm] 110/83 Blood Pressure [Ri ght Upper Arm] Pulse Oximetry 93 93 Oxygen Delivery Me thod Room Air Room Air 05/02/23 23:41 05/03/23 03:26 Temperature 98.1 F 98.1 F Pulse Rate Pulse Rate [Left R adial] 81 86 Pulse Rate [Pulse Oximeter] Respiratory Rate 18 16 Blood Pressure [Le ft Arm] 117/82 Blood Pressure [Ri ght Upper Arm] Pulse Oximetry 93 92 Oxygen Delivery Me thod Room Air Room Air Results Labs Labs: Abnormal lab results 05/02/23 05/02/23 05/02/23 Range/Units 17:05 17:38 20:54 WBC 12.37 H (4.50-11.00) K/uL RBC 3.25 L (4.30-5.90) m/uL Hgb 11.6 L (13.5-17.5) gm/dL Hct 32.3 L (37.0-53.0) % MCH 36 H (26-34) pg Plt Count 449 H (140-440) K/uL Neut % (Auto) 84.6 H (42.0-72.0) % Lymph % (Auto) 7.8 L (20-44) % Neut # (Auto) 10.50 H (1.7-7.0) K/uL VBG pH 7.532 H (7.32-7.43) VBG pCO2 37 L (40-50) mmHG VBG HCO3 31 H (21-28) mmol/L Sodium 114 L* 115 L* (135-149) mmol/L Potassium 2.5 L* 3.1 L (3.6-5.1) mmol/L Chloride 73 L 75 L (96-114) mmol/L Calcium 7.2 L 7.0 L (8.4-10.6) mg/dL Magnesium 1.3 L (1.5-2.6) mg/dL Total Bilirubin 3.2 H (0.1-1.5) mg/dL Direct Bilirubin 1.1 H (0.0-0.5) mg/dL GGT 176 H (8-55) U/L AST 91 H (12-35) U/L Alkaline Phosphatase 190 H (40-150) U/L 05/03/23 05/03/23 Range/Units 00:20 02:35 WBC (4.50-11.00) K/uL RBC (4.30-5.90) m/uL Hgb (13.5-17.5) gm/dL Hct (37.0-53.0) % MCH (26-34) pg Plt Count (140-440) K/uL Neut % (Auto) (42.0-72.0) % Lymph % (Auto) (20-44) % Neut # (Auto) (1.7-7.0) K/uL VBG pH (7.32-7.43) VBG pCO2 (40-50) mmHG VBG HCO3 (21-28) mmol/L Sodium 116 L* 117 L* (135-149) mmol/L Potassium 3.3 L 3.4 L (3.6-5.1) mmol/L Chloride 78 L 79 L (96-114) mmol/L Calcium 7.0 L 7.0 L (8.4-10.6) mg/dL Magnesium (1.5-2.6) mg/dL Total Bilirubin (0.1-1.5) mg/dL Direct Bilirubin (0.0-0.5) mg/dL GGT (8-55) U/L AST (12-35) U/L Alkaline Phosphatase (40-150) U/L Diabetes panel 05/02/23 05/02/23 05/03/23 Range/Units 17:05 20:54 00:20 Sodium 114 L* 115 L* 116 L* (135-149) mmol/L Potassium 2.5 L* 3.1 L 3.3 L (3.6-5.1) mmol/L Chloride 73 L 75 L 78 L (96-114) mmol/L Carbon Dioxide 28 31 27 (20-32) mmol/L BUN 12 11 12 (7-30) mg/dL Creatinine 0.8 0.8 0.8 (0.5-1.5) mg/dL Glucose 111 104 111 (60-115) mg/dL Calcium 7.2 L 7.0 L 7.0 L (8.4-10.6) mg/dL AST 91 H (12-35) U/L ALT 26 (4-50) U/L Alkaline Phosphatase 190 H (40-150) U/L Total Protein 6.7 (6.0-8.3) g/dL Albumin 3.3 (3.3-5.0) g/dL 05/03/23 Range/Units 02:35 Sodium 117 L* (135-149) mmol/L Potassium 3.4 L (3.6-5.1) mmol/L Chloride 79 L (96-114) mmol/L Carbon Dioxide 28 (20-32) mmol/L BUN 12 (7-30) mg/dL Creatinine 0.8 (0.5-1.5) mg/dL Glucose 112 (60-115) mg/dL Calcium 7.0 L (8.4-10.6) mg/dL AST (12-35) U/L ALT (4-50) U/L Alkaline Phosphatase (40-150) U/L Total Protein (6.0-8.3) g/dL Albumin (3.3-5.0) g/dL Thyroid panel 05/02/23 Range/Units 17:05 TSH 3.470 (0.270-4.20) uIU/mL Calcium panel 05/02/23 05/02/23 05/03/23 Range/Units 17:05 20:54 00:20 Calcium 7.2 L 7.0 L 7.0 L (8.4-10.6) mg/dL Albumin 3.3 (3.3-5.0) g/dL 05/03/23 Range/Units 02:35 Calcium 7.0 L (8.4-10.6) mg/dL Albumin (3.3-5.0) g/dL Pituitary panel 05/02/23 05/02/23 05/03/23 Range/Units 17:05 20:54 00:20 Sodium 114 L* 115 L* 116 L* (135-149) mmol/L Potassium 2.5 L* 3.1 L 3.3 L (3.6-5.1) mmol/L Chloride 73 L 75 L 78 L (96-114) mmol/L Carbon Dioxide 28 31 27 (20-32) mmol/L BUN 12 11 12 (7-30) mg/dL Creatinine 0.8 0.8 0.8 (0.5-1.5) mg/dL Glucose 111 104 111 (60-115) mg/dL Calcium 7.2 L 7.0 L 7.0 L (8.4-10.6) mg/dL TSH 3.470 (0.270-4.20) uIU/mL 05/03/23 Range/Units 02:35 Sodium 117 L* (135-149) mmol/L Potassium 3.4 L (3.6-5.1) mmol/L Chloride 79 L (96-114) mmol/L Carbon Dioxide 28 (20-32) mmol/L BUN 12 (7-30) mg/dL Creatinine 0.8 (0.5-1.5) mg/dL Glucose 112 (60-115) mg/dL Calcium 7.0 L (8.4-10.6) mg/dL TSH (0.270-4.20) uIU/mL Adrenal panel 05/02/23 05/02/23 05/03/23 Range/Units 17:05 20:54 00:20 Sodium 114 L* 115 L* 116 L* (135-149) mmol/L Potassium 2.5 L* 3.1 L 3.3 L (3.6-5.1) mmol/L Chloride 73 L 75 L 78 L (96-114) mmol/L Carbon Dioxide 28 31 27 (20-32) mmol/L BUN 12 11 12 (7-30) mg/dL Creatinine 0.8 0.8 0.8 (0.5-1.5) mg/dL Glucose 111 104 111 (60-115) mg/dL Calcium 7.2 L 7.0 L 7.0 L (8.4-10.6) mg/dL Total Bilirubin 3.2 H (0.1-1.5) mg/dL AST 91 H (12-35) U/L ALT 26 (4-50) U/L Alkaline Phosphatase 190 H (40-150) U/L Total Protein 6.7 (6.0-8.3) g/dL Albumin 3.3 (3.3-5.0) g/dL 05/03/23 Range/Units 02:35 Sodium 117 L* (135-149) mmol/L Potassium 3.4 L (3.6-5.1) mmol/L Chloride 79 L (96-114) mmol/L Carbon Dioxide 28 (20-32) mmol/L BUN 12 (7-30) mg/dL Creatinine 0.8 (0.5-1.5) mg/dL Glucose 112 (60-115) mg/dL Calcium 7.0 L (8.4-10.6) mg/dL Total Bilirubin (0.1-1.5) mg/dL AST (12-35) U/L ALT (4-50) U/L Alkaline Phosphatase (40-150) U/L Total Protein (6.0-8.3) g/dL Albumin (3.3-5.0) g/dL All other labs normal. Imaging Abdomen CT scan report/results: report reviewed and image reviewed Assessment and Plan Assessment and plan (1) Abdominal ascites: Problem comment: -general surg consult for paracentsis -furosemide/spironolactone regimen to begin once sodium/potassium/mag are not critically low -consider culturing his abdominal ascites, not currently on antibiotics -IV PPI -Chad wrap compression to his legs -fluid restriction Status: Acute Plan Patient is a 63-year-old male with newly diagnosed liver disease and evidence of significant abdominal ascites on physical exam and CT imaging. Risks and benefits of paracentesis were discussed at length with the patient. He does understand that liver disease does increase your risk of bleeding. This morning his platelets are greater than 400 with INR last night in the emergency department 1.3. He also understands the risk of infection and damage to surrounding structures. Will plan to drain off as much fluid as patient tolerates and send labs to assist with diagnosis. Procedure was tolerated well without immediate complication. It was able to pull off 80485 mL clear yellow tinged serous fluid. Sample was sent for diagnostic labs. General Surgery Procedures Paracentesis Time out performed: Yes Imaging guidance used: Yes Indication: Ascites Procedure: therapeutic paracentesis Location: RLQ Local anesthetic used: lidocaine 1% Amount of anesthesia used (ml): 4 Bedside ultrasound used: yes, Ascites confirmed and location marked Preparation: sterile prep and drape Amount of fluid obtained (ml): 12,200 Fluid: clear (serous) Post procedure exam: awake, alert, normal BP, normal HR and normal SpO2 Patient tolerated procedure: well and no complications Complications: none
[2023-05-03 08:24] LABS: Sodium* 119 mmol/L (135-149)
[2023-05-03] MEDS: THIAMINE 250 MG in 0.9 % SODIUM CHLORIDE 100 ml 100 ML 102.5 MG IVPB ×3 (09:03→21:31)
[2023-05-03] MEDS: FOLIC ACID 1 MG TABLET PO (09:03)
[2023-05-03] MEDS: POTASSIUM BICARB 25 MEQ EFFERVESCENT TAB 50 MEQ PO (09:03)
[2023-05-03] MEDS: MULTIVITAMIN/MINERALS 1 TABLET 1 TAB PO (09:04)
[2023-05-03] MEDS: GABAPENTIN 100 MG CAPSULE PO ×3 (09:04→21:29)
--- NOTE | 2023-05-03 10:50 | PM.IMPN1 ---
Progress Note: A&P Assessment and plan (1) Abdominal ascites: Problem details: - new - paracentesis with Dr. Montiel of General Surgery on 05/03 (12L + 200mL), cultures ordered and pending - furosemide/spironolactone regimen to begin once BP stabilizes post-procedure and sodium/potassium/mag are not critically low - IV PPI - Chad wrap compression to his legs - fluid restriction - no antibiotics indicated at this time Status: Acute (2) Hyponatremia: Problem details: - high risk for osmotic demyelination syndrome (concurrent hypokalemia, alcohol use disorder, liver disease), on 3% saline with IV desmopressin, following NA closely - fluid restriction, salt tabs, oral potassium, IV magnesium. Status: Acute (3) Hypokalemia: Problem details: - received p.o., single dose, in the ED - will follow with IV/PO replacement as necessary Status: Acute (4) Alcohol use disorder: Problem details: -daily vodka drinker (last drink 1 pm 05/01/23) -thiamine, multivitamin, folate replacement -CIWA protocols with ativan -initiated gabapentin 100 mg TID (05/02) -consider early use of fixed/scheduled phenobarbital (not requiring as of 05/03 am) Status: Acute (5) Hypertension: Problem details: - on outpatient amlodipine, atenolol, hydrochlorothiazide (all on hold as of admission 05/02) Status: Acute (6) Ruff's esophagus: Problem details: -has had surveillance EGDS -on PPI Status: Acute Plan - per above - Lovenox for ppx Subjective Date Seen: 05/03/23 Interval history: Antonio was admitted last night for new onset ascites and diagnosis of liver disease, likely related to chronic alcohol overuse. He is on hypertonic saline for hyponatremia, had a paracentesis with Dr. Montiel this morning and 12L + 200mL taken off during procedure. Patient remains afebrile, mild hypotension following paracentesis (asymptomatic). No symptoms of ETOH withdrawal, no concerns for hospitalist team this morning. Exam Narrative: Exam Narrative: GEN: Alert and oriented, nontoxic, laying comfortably in bed HEENT: No scleral icterus, strabismus, baseline and stable CV: RRR, soft systolic murmur heard best at left upper sternal border without concerning features R: LCTA bilaterally without concerning wheezing Ab: substantial ascites + fluid wave, significant improvement post-paracentesis Ext: 2-3+ pitting edema BLE Neuro: Nonfocal Psych: Appropriate Const: Vital Signs, click to edit/add: Vital Signs - 24 hr 05/02/23 17:05 05/02/23 19:23 05/02/23 19:24 Temperature 97.2 F L Pulse Rate Pulse Rate [Left R adial] Pulse Rate [Pulse Oximeter] 80 Respiratory Rate 20 16 Blood Pressure [Le ft Arm] Blood Pressure [Ri ght Upper Arm] 115/84 109/82 Pulse Oximetry 95 92 Oxygen Delivery Me thod Room Air Room Air Room Air 05/02/23 21:12 05/02/23 21:13 05/02/23 21:15 Temperature 97.2 F L 97.2 F L Pulse Rate Pulse Rate [Left R adial] Pulse Rate [Pulse Oximeter] Respiratory Rate 18 18 18 Blood Pressure [Le ft Arm] Blood Pressure [Ri ght Upper Arm] Pulse Oximetry 93 93 93 Oxygen Delivery Me thod Room Air Room Air Room Air 05/02/23 21:15 05/02/23 21:17 05/02/23 21:24 Temperature 97.2 F L Pulse Rate 85 Pulse Rate [Left R adial] 86 Pulse Rate [Pulse Oximeter] Respiratory Rate 18 Blood Pressure [Le ft Arm] 110/83 Blood Pressure [Ri ght Upper Arm] Pulse Oximetry 93 93 Oxygen Delivery Me thod Room Air 05/02/23 21:31 05/02/23 22:09 05/02/23 22:28 Temperature 97.2 F L Pulse Rate Pulse Rate [Left R adial] 85 85 Pulse Rate [Pulse Oximeter] Respiratory Rate 18 18 Blood Pressure [Le ft Arm] 110/83 Blood Pressure [Ri ght Upper Arm] Pulse Oximetry 93 93 Oxygen Delivery Me thod Room Air Room Air 05/02/23 23:41 05/03/23 03:26 05/03/23 08:15 Temperature 98.1 F 98.1 F 99.7 F H Pulse Rate Pulse Rate [Left R adial] 81 86 88 Pulse Rate [Pulse Oximeter] Respiratory Rate 18 16 20 Blood Pressure [Le ft Arm] 117/82 112/77 Blood Pressure [Ri ght Upper Arm] Pulse Oximetry 93 92 92 Oxygen Delivery Me thod Room Air Room Air Room Air 05/03/23 08:15 05/03/23 08:15 Temperature Pulse Rate Pulse Rate [Left R adial] Pulse Rate [Pulse Oximeter] Respiratory Rate 20 Blood Pressure [Le ft Arm] Blood Pressure [Ri ght Upper Arm] Pulse Oximetry 92 92 Oxygen Delivery [place] thod Room Air Labs Labs: Laboratory Results - last 24 hr 05/02/23 05/02/23 05/02/23 17:05 17:38 19:07 WBC 12.37 H RBC 3.25 L Hgb 11.6 L Hct 32.3 L MCV 99 MCH 36 H MCHC 36 RDW Coeff of Song 13.2 Plt Count 449 H Neut % (Auto) 84.6 H Lymph % (Auto) 7.8 L [place] % (Auto) 6.7 Eos % (Auto) 0.5 Baso % (Auto) 0.2 Neut # (Auto) 10.50 H Lymph # (Auto) 1.00 [place] # (Auto) 0.80 Eos # (Auto) 0.10 Baso # (Auto) 0.00 Abs Immat Gran (auto) 0.00 Imm/Tot Granulo (auto) 0.2 VBG pH 7.532 H VBG pCO2 37 L VBG pO2 33.3 VBG HCO3 31 H Sodium 114 L* Potassium 2.5 L* Chloride 73 L Carbon Dioxide 28 Anion Gap 13 BUN 12 Creatinine 0.8 Estimated Creat Clear 71.61 Estimated GFR 100 Glucose 111 Lactate Cancelled Calcium 7.2 L Magnesium 1.3 L Total Bilirubin 3.2 H Direct Bilirubin 1.1 H GGT 176 H AST 91 H ALT 26 Alkaline Phosphatase 190 H Ammonia 27.0 NT-Pro-B Natriuret Pep 754 Total Protein 6.7 Albumin 3.3 Lipase 263 TSH 3.470 Urine Opiates Screen Ur Oxycodone Screen Urine Methadone Screen Ur Propoxyphene Screen Ur Barbiturates Screen U Tricyclic Antidepress Ur Phencyclidine Scrn Ur Amphetamines Screen U Methamphetamines Scrn U Benzodiazepines Scrn Urine Cocaine Screen U Marijuana (THC) Screen Ur Drug Screen Comment Lab Acknowledgement Test Added 05/02/23 05/02/23 05/02/23 20:03 20:54 23:41 WBC RBC Hgb Hct MCV MCH MCHC RDW Coeff of Song Plt Count Neut % (Auto) Lymph % (Auto) [place] % (Auto) Eos % (Auto) Baso % (Auto) Neut # (Auto) Lymph # (Auto) [place] # (Auto) Eos # (Auto) Baso # (Auto) Abs Immat Gran (auto) Imm/Tot Granulo (auto) VBG pH VBG pCO2 VBG pO2 VBG HCO3 Sodium 115 L* Potassium 3.1 L Chloride 75 L Carbon Dioxide 31 Anion Gap 9 BUN 11 Creatinine 0.8 Estimated Creat Clear 71.61 Estimated GFR 100 Glucose 104 Lactate Calcium 7.0 L Magnesium Total Bilirubin Direct Bilirubin GGT AST ALT Alkaline Phosphatase Ammonia NT-Pro-B Natriuret Pep Total Protein Albumin Lipase TSH Urine Opiates Screen Negative Ur Oxycodone Screen Negative Urine Methadone Screen Negative Ur Propoxyphene Screen Negative Ur Barbiturates Screen Negative U Tricyclic Antidepress Negative Ur Phencyclidine Scrn Negative Ur Amphetamines Screen Negative U Methamphetamines Scrn Negative U Benzodiazepines Scrn Negative Urine Cocaine Screen Negative U Marijuana (THC) Screen Negative Ur Drug Screen Comment See Note Lab Acknowledgement Test Added 05/03/23 05/03/23 05/03/23 00:20 02:35 07:38 WBC RBC Hgb Hct MCV MCH MCHC RDW Coeff of Song Plt Count Neut % (Auto) Lymph % (Auto) [place] % (Auto) Eos % (Auto) Baso % (Auto) Neut # (Auto) Lymph # (Auto) [place] # (Auto) Eos # (Auto) Baso # (Auto) Abs Immat Gran (auto) Imm/Tot Granulo (auto) VBG pH VBG pCO2 VBG pO2 VBG HCO3 Sodium 116 L* 117 L* 119 L* Potassium 3.3 L 3.4 L Chloride 78 L 79 L Carbon Dioxide 27 28 Anion Gap 11 10 BUN 12 12 Creatinine 0.8 0.8 Estimated Creat Clear 71.61 71.61 Estimated GFR 100 100 Glucose 111 112 Lactate Calcium 7.0 L 7.0 L Magnesium Total Bilirubin Direct Bilirubin GGT AST ALT Alkaline Phosphatase Ammonia NT-Pro-B Natriuret Pep Total Protein Albumin Lipase TSH Urine Opiates Screen Ur Oxycodone Screen Urine Methadone Screen Ur Propoxyphene Screen Ur Barbiturates Screen U Tricyclic Antidepress Ur Phencyclidine Scrn Ur Amphetamines Screen U Methamphetamines Scrn U Benzodiazepines Scrn Urine Cocaine Screen U Marijuana (THC) Screen Ur Drug Screen Comment Lab Acknowledgement
[2023-05-03 11:41] LABS: BF Clarity* Clear; BF Color Xanthochromic
[2023-05-03 11:55] LABS: Mononuclear WBC Body Fluid* 76 %; Polynuclear WBC Body Fluid* 24 %; RBC, Body Fluid* 0 Cells/uL; WBC, Body Fluid* 42 Cells/uL
--- NOTE | 2023-05-03 13:45 | REH.PT ---
PT attempted eval this morning. Patient reports feeling better after his paracentesis procedure. States he was able to get around at home prior to his hospitalization and doesn't have any concerns about getting around at this time. Patient asked to demonstrate mobility, transfers, walking with PT but declined. Patient expressed frustration that PT was in to assess him and that OT had been in earlier. He does not feel he has any PT needs at this time. PT offered to check back with him tomorrow. Patient declined the need for any further assessment and asked that PT not return. PT informed patient that if he is moving well with nursing then PT would not return but if he was having any issues nursing would let PT know for further assessment. Nursing updated.
--- NOTE | 2023-05-03 14:19 | REH.OT ---
OT: Order received, initial attempt patient having paracentesis. Returned 2x after completed and patient would not get OOB. OT provided ed with role of OT, and he continued to refuse to get OOB, reports he has been managing independently at home despite abdominal distention and LE edema. OT addressed low Na and initiated questions to screen cognition and patient declining to complete. He reports he does not want therapy and declines having therapy return to see him. Patient was informed that OT can be reconsulted to assess needs to aid in safe d/c plan during hospitalization. Nsg informed.
[2023-05-03 14:30] LABS: Potassium* 3.6 mmol/L (3.6-5.1)
[2023-05-03 14:33] LABS: Magnesium* 2.3 mg/dL (1.5-2.6)
[2023-05-03 14:45] LABS: Sodium* 121 mmol/L (135-149)
[2023-05-03] MEDS: SODIUM CHLORIDE 1 GM TABLET PO ×2 (14:53→18:26)
[2023-05-03] MEDS: ALBUMIN HUMAN 25% 25 GM/100 ML VIAL IVPB (14:54)
--- NOTE | 2023-05-03 16:13 | PM.EN ---
Chart Event Note Date Seen: 05/03/23 Chart Event Note: Reviewed afternoon labs on the afternoon of 05/03 --sodium is up to 121. -Potassium was up to 3.6 -magnesium is up to 2.3 -over 12 L were drawn off by the paracentesis. I did add to 25 g boluses of albumin this afternoon to account for fluid shifts given his hypotension. -we will continue 3% until he is 125. Q.6 hours desmopressin.
[2023-05-03] MEDS: POTASSIUM CHLORIDE 10 MEQ CAPSULE ER 20 MEQ PO (19:08)
[2023-05-03 19:10] LABS: HCO3 VBG 31 mmol/L (21-28); PCO2 VBG 40 mmHG (40-50); PO2 VBG 32.8 mmHG (25-47)
[2023-05-03 19:27] LABS: Chloride* 85 mmol/L (96-114); Potassium* 3.4 mmol/L (3.6-5.1)
[2023-05-03 19:30] LABS: Anion Gap 10 mEq/L (7-15); Blood Urea Nitrogen* 11 mg/dL (7-30); Calcium* 6.9 mg/dL (8.4-10.6); Carbon Dioxide* 28 mmol/L (20-32); Creatinine* 0.8 mg/dL (0.5-1.5); Est. Creatinine Clearance* 71.61; Estimated Glomerular Filt Rate 100 ml/min; Glucose* 162 mg/dL (60-115)
[2023-05-03 19:35] LABS: Sodium* 123 mmol/L (135-149)
[2023-05-03] MEDS: ENOXAPARIN 40 MG/0.4 ML INJ SUBCUT (21:30)
[2023-05-04] VITALS (7 sets, daily range): BP systolic 100–113; BP diastolic 66–78; PULSE 85–95; RESP 16–20; TEMP 36.4–37.2; O2SAT 91–94; BMI 27.1
[2023-05-04 00:43] LABS: Sodium* 123 mmol/L (135-149)
[2023-05-04] MEDS: DESMOPRESSIN ACETATE 4 MCG/ML inj 1 MCG IVP ×4 (01:35→19:31)
[2023-05-04] MEDS: SODIUM CHLORIDE 0.9 % (FLUSH) 10 ML SYRINGE 5 ML IVF ×2 (01:36→19:31)
--- NOTE | 2023-05-04 06:05 | PC.NURSE ---
END OF SHIFT NOTE: PT PLEASANT AND COOPERATIVE. A&Ox3. PT DENIES CP, SOB, N/V. AMBULATES WITH SBA. VSS ON RA; AFEBRILE. TELE READS NSR. 0000 NA+ DRAW 123; HORIZON UPDATED; NO NEW ORDERS AT THIS TIME. IV CONTINUES TO RUN 3% SODIUM CHLORIDE @30ML/HR. PT DOWN 25LBS FROM YESTERDAY AFTER REMOVAL OF ROUGHLY 12L OF FLUID.?CALL LIGHT WITHIN PT?S REACH.?
[2023-05-04] MEDS: OMEPRAZOLE 20 MG CAPSULE DR 40 MG PO ×3 (06:32→21:06)
[2023-05-04 06:56] LABS: Basophils Percent Auto 0.3 % (0.0-3.0); Eosinophils Percent Auto 0.8 % (0.0-7.0); Hematocrit 31.5 % (37.0-53.0); Hemoglobin* 10.9 gm/dL (13.5-17.5); Immature Granulocytes Pct Auto 0.3 %; Lymphocytes Percent Auto 8.5 % (20-44); Mean Corpuscular HGB Conc 35 gm/dL (32-36); Mean Corpuscular Hemoglobin 35 pg (26-34); Mean Corpuscular Volume 102 fL (80-100); Monocytes Percent Auto 7.9 % (0.0-11.0); Neutrophils Percent Auto 82.2 % (42.0-72.0); Platelet Count* 287 K/uL (140-440); RDW Coefficient of Variation % 14.1 % (11.5-15.5); Red Blood Count 3.08 m/uL (4.30-5.90); White Blood Count* 11.71 K/uL (4.50-11.00)
[2023-05-04 06:58] LABS: Slide Review Reflex No
[2023-05-04 06:59] LABS: Ionized Calcium* 0.94 mmol/L (1.11-1.30)
[2023-05-04 07:30] LABS: Albumin* 2.7 g/dL (3.3-5.0); Chloride* 90 mmol/L (96-114); INR 1.54 (0.91-1.10); Potassium* 3.3 mmol/L (3.6-5.1); Prothrombin Time 19.5 Seconds
[2023-05-04 07:32] LABS: Creatinine* 0.7 mg/dL (0.5-1.5); Est. Creatinine Clearance* 71.61; Estimated Glomerular Filt Rate 104 ml/min
[2023-05-04 07:33] LABS: Alanine Aminotransferase* 18 U/L (4-50); Alkaline Phosphatase* 151 U/L (40-150); Anion Gap 9 mEq/L (7-15); Aspartate Amino Transferase* 59 U/L (12-35); Blood Urea Nitrogen* 10 mg/dL (7-30); Calcium* 6.8 mg/dL (8.4-10.6); Carbon Dioxide* 25 mmol/L (20-32); Glucose* 137 mg/dL (60-115); Total Protein* 5.4 g/dL (6.0-8.3)
[2023-05-04 07:39] LABS: Sodium* 124 mmol/L (135-149)
[2023-05-04] MEDS: SODIUM CHLORIDE 1 GM TABLET PO ×3 (09:07→18:12)
[2023-05-04] MEDS: POTASSIUM CHLORIDE 10 MEQ CAPSULE ER 20 MEQ PO ×3 (09:07→18:13)
[2023-05-04] MEDS: FOLIC ACID 1 MG TABLET PO (09:08)
[2023-05-04] MEDS: MULTIVITAMIN/MINERALS 1 TABLET 1 TAB PO (09:08)
[2023-05-04] MEDS: GABAPENTIN 100 MG CAPSULE PO ×2 (09:08→13:54)
--- NOTE | 2023-05-04 09:32 | P.IMPN_ITS ---
Progress Note: A&P Assessment and plan (1) Abdominal ascites: Problem details: - new, April 2023 - likely 2/2 ETOH use/liver disease (with resultant macrocytic anemia, elevated LFTs, elevated INR, MELD of 26 on 05/04/23) - paracentesis with Dr. Montiel of General Surgery on 05/03 (12L + 200mL), cultures ordered and pending - furosemide/spironolactone regimen to begin once BP stabilizes post-procedure and sodium/potassium/mag are not critically low - Chad wrap compression to his legs - fluid restriction - no antibiotics indicated at this time, NGTD on paracentesis culture Status: Acute (2) Hyponatremia: Problem details: - high risk for osmotic demyelination syndrome (concurrent hypokalemia, alcohol use disorder, liver disease), on 3% saline with IV desmopressin, following NA closely - fluid restriction, salt tabs, oral potassium, IV magnesium. Status: Acute (3) Hypokalemia: Problem details: - will follow with IV/PO replacement as necessary Status: Acute (4) Alcohol use disorder: Problem details: -daily vodka drinker (last drink 1 pm 05/01/23) -thiamine, multivitamin, folate replacement -CIWA protocols with ativan -initiated gabapentin 100 mg TID (05/02) Status: Acute (5) Hypertension: Problem details: - on outpatient amlodipine, atenolol, hydrochlorothiazide (all on hold as of admission 05/02) - hypotensive since admission, will need close BP monitoring when diuretics are initiated Status: Acute (6) Ruff's esophagus: Problem details: -has had surveillance EGDS -on PPI Status: Acute Plan - per above - Lovenox and PPI for prophylaxis - likely initiate diuretics 05/05; patient would like to d/c but agreeable to staying in the hospital after discussion of illness, prognosis, plan of care Subjective Date Seen: 05/04/23 Interval history: Antonio was admitted to the hospital on 05/02/23 for new onset ascites and liver disease, likely related to chronic alcohol overuse. He was hyponatremic, hypokalemia, hypocalcemic, hypomagnesemic on admission (NA 115, has slowly corrected with hypertonic saline + desmopressin). Ascites is improved s/p paracentesis with Dr. Montiel on 05/03 (12L + 200mL taken off during procedure). Antonio has had no symptoms of ETOH withdrawal, does have some agitation regarding hospital stay (hoping to go home [place]). This morning, sodium is 124. Patient has no pain or other concerns for hospitalist team. Exam Narrative: Exam Narrative: GEN: Alert and sitting comfortably in bed HEENT: Strabismus is baseline and stable, mild scleral icterus CV: RRR, No concerning murmurs R: LCTA bilaterally without concerning wheezing, rales, or rhonchi Ab: + ascites with fluid wave, improved post-paracentesis Ext: + clubbing bilateral upper extremities, 1+ edema bilateral lower extremities Skin: + varicosites on abdomen Neuro: Nonfocal Psych: Appropriate Const: Vital Signs, click to edit/add: Vital Signs - 24 hr 05/03/23 09:42 05/03/23 09:45 05/03/23 09:50 Temperature Pulse Rate [Left R adial] 86 89 92 Respiratory Rate Blood Pressure [Le ft Arm] 111/78 110/72 109/75 Pulse Oximetry Oxygen Delivery La thod 05/03/23 09:55 05/03/23 10:00 05/03/23 10:05 Temperature Pulse Rate [Left R adial] 95 89 87 Respiratory Rate Blood Pressure [Le ft Arm] 103/66 108/73 103/70 [facility] 05/[facility]/23 10:10 05/03/23 10:15 05/03/23 10:20 Temperature Pulse Rate [Left R adial] 88 86 87 Respiratory Rate Blood Pressure [Le ft Arm] 104/69 101/65 102/64 Pulse Oximetry Oxygen Delivery [place] thod 05/03/23 10:25 05/03/23 10:30 05/03/23 10:35 Temperature Pulse Rate [Left R adial] 90 88 87 Respiratory Rate Blood Pressure [Le ft Arm] 101/67 104/64 100/62 Pulse Oximetry Oxygen Delivery La thod 05/03/23 10:40 05/03/23 10:45 05/03/23 10:55 Temperature Pulse Rate [Left R adial] 88 87 88 Respiratory Rate Blood Pressure [Le ft Arm] 92/61 98/62 102/64 Pulse Oximetry Oxygen Delivery [place] thod 05/03/23 11:15 05/03/23 11:30 05/03/23 15:00 Temperature 99.6 F 98.2 F Pulse Rate [Left R adial] 88 91 86 Respiratory Rate 18 18 Blood Pressure [Le ft Arm] 101/69 99/59 L 103/52 L Pulse Oximetry 93 91 Oxygen Delivery Me thod Room Air Room Air 05/03/23 15:00 05/03/23 15:00 05/03/23 19:00 Temperature 98.2 F 98.7 F Pulse Rate [Left R adial] 86 86 89 Respiratory Rate 18 18 18 Blood Pressure [Le ft Arm] 103/52 L 105/69 Pulse Oximetry 91 90 Oxygen Delivery Me thod Room Air Room Air 05/03/23 19:00 05/03/23 23:00 05/03/23 23:00 Temperature 98.7 F 98.9 F Pulse Rate [Left R adial] 89 85 89 Respiratory Rate 18 18 18 Blood Pressure [Le ft Arm] 105/69 109/69 Pulse Oximetry 90 94 Oxygen Delivery La thod Room Air Room Air 05/04/23 03:00 Temperature 98.8 F Pulse Rate [Left R adial] 85 Respiratory Rate 16 Blood Pressure [Le ft Arm] 108/71 Pulse Oximetry 93 Oxygen Delivery Me thod Room Air Labs Labs: Laboratory Results - last 24 hr 05/03/23 05/03/23 05/03/23 11:08 14:00 19:03 WBC RBC Hgb Hct MCV MCH MCHC RDW Coeff of Song Plt Count Neut % (Auto) Lymph % (Auto) [place] % (Auto) Eos % (Auto) Baso % (Auto) Neut # (Auto) Lymph # (Auto) [place] # (Auto) Eos # (Auto) Baso # (Auto) Abs Immat Gran (auto) Imm/Tot Granulo (auto) INR VBG pH 7.490 H VBG pCO2 40 VBG pO2 32.8 VBG HCO3 31 H Sodium 121 L* 123 L* Potassium 3.6 3.4 L Chloride 85 L Carbon Dioxide 28 Anion Gap 10 BUN 11 Creatinine 0.8 Estimated Creat Clear 71.61 Estimated GFR 100 Glucose 162 H Calcium 6.9 L Ionized Calcium Ga Magnesium 2.3 Total Bilirubin AST ALT Alkaline Phosphatase Total Protein Albumin Fluid Volume 21.0 Fluid Color Xanthochromic A Fluid Appearance Clear Fluid WBC 42 Fluid RBC 0 Fluid Polynuclear WBCs 24 Fluid Mononuclear WBCs 76 Fluid Total Protein 2.0 05/04/23 05/04/23 00:20 06:40 WBC 11.71 H RBC 3.08 L Hgb 10.9 L Hct 31.5 L MCV 102 H MCH 35 H MCHC 35 RDW Coeff of Song 14.1 Plt Count 287 Neut % (Auto) 82.2 H Lymph % (Auto) 8.5 L [place] % (Auto) 7.9 Eos % (Auto) 0.8 Baso % (Auto) 0.3 Neut # (Auto) 9.60 H Lymph # (Auto) 1.00 [place] # (Auto) 0.90 Eos # (Auto) 0.10 Baso # (Auto) 0.00 Abs Immat Gran (auto) 0.00 Imm/Tot Granulo (auto) 0.3 INR 1.54 H VBG pH VBG pCO2 VBG pO2 VBG HCO3 Sodium 123 L* 124 L* Potassium 3.3 L Chloride 90 L Carbon Dioxide 25 Anion Gap 9 BUN 10 Creatinine 0.7 Estimated Creat Clear 71.61 Estimated GFR 104 Glucose 137 H Calcium 6.8 L Ionized Calcium Ga 0.94 L Magnesium 2.0 Total Bilirubin 2.0 H AST 59 H ALT 18 Alkaline Phosphatase 151 H Total Protein 5.4 L Albumin 2.7 L Fluid Volume Fluid Color Fluid Appearance Fluid WBC Fluid RBC Fluid Polynuclear WBCs Fluid Mononuclear WBCs Fluid Total Protein
[2023-05-04] MEDS: THIAMINE 250 MG in 0.9 % SODIUM CHLORIDE 100 ml 100 ML 102.5 MG IVPB ×3 (10:28→21:06)
[2023-05-04 14:13] LABS: Chloride* 92 mmol/L (96-114); Potassium* 3.5 mmol/L (3.6-5.1); Sodium* 127 mmol/L (135-149)
[2023-05-04 14:16] LABS: Anion Gap 8 mEq/L (7-15); Blood Urea Nitrogen* 11 mg/dL (7-30); Calcium* 7.2 mg/dL (8.4-10.6); Carbon Dioxide* 27 mmol/L (20-32); Creatinine* 0.8 mg/dL (0.5-1.5); Est. Creatinine Clearance* 71.61; Estimated Glomerular Filt Rate 100 ml/min; Glucose* 139 mg/dL (60-115)
--- NOTE | 2023-05-04 14:21 | PC.SOCIAL ---
Met with pt. to offer ETOH resources and discuss chemical dependency treatment options. Pt. states don't waste your time and declined taking any CD resources. The physician was updated.
--- NOTE | 2023-05-04 18:30 | PC.NURSE ---
Shift Note [id number]: Pt making negative statements this morning regarding his POC, interventions, and diagnosis. Pt successfully redirected and seemed receptive to education. VS WNL, BP's low hundreds systolically. SpO2 94% or greater on RA. Afebrile. Abdomen large, round, and protuberant with visible caput medusae. Pt denies pain. Bowel sounds present, pt reports flatus and BM x2 but also endorses poor appetite. Ate about 75% of breakfast and declined lunch tray. He did enjoy 100% of chocolate ensure mixed with vanilla icecream. Ambulated the halls x1 this afternoon and his son came to visit at bedside. CIWA's= 4 related to tremors, pt otherwise denies headache, sweating, anxiety or other indicators of withdrawal. Refused potassium effervescent, but has been compliant with PO capsules. Hypertonic saline infusing 30ml/hr.
[2023-05-04] MEDS: ENOXAPARIN 40 MG/0.4 ML INJ SUBCUT (21:06)
[2023-05-04] MEDS: GABAPENTIN 300 MG CAPSULE PO (21:06)
[2023-05-05] VITALS (7 sets, daily range): BP systolic 101–107; BP diastolic 70–79; PULSE 83–99; RESP 16–20; TEMP 36.6–36.9; O2SAT 91–96
--- NOTE | 2023-05-05 06:31 | PC.NURSE ---
End of shift [id number]: Alert and oriented x 4. Denies any pain, chest pain or shortness of breath. Abdomen is large, round and firm to the touch. Patient requesting to take a shower, service writer advisor spoke with candy King to DC tele and candy for shower. Provider reviewed labs, DC IV solution and saline lock patient. Continues with fluid restriction, patient compliant through the shift. Urine is [place] in color, clear and moderate odor.
[2023-05-05 07:19] LABS: Basophils Percent Auto 0.2 % (0.0-3.0); Eosinophils Percent Auto 0.7 % (0.0-7.0); Hematocrit 31.4 % (37.0-53.0); Hemoglobin* 10.6 gm/dL (13.5-17.5); Immature Granulocytes Pct Auto 0.3 %; Lymphocytes Percent Auto 7.2 % (20-44); Mean Corpuscular HGB Conc 34 gm/dL (32-36); Mean Corpuscular Hemoglobin 36 pg (26-34); Mean Corpuscular Volume 106 fL (80-100); Neutrophils Percent Auto 84.6 % (42.0-72.0); Platelet Count* 291 K/uL (140-440); RDW Coefficient of Variation % 14.7 % (11.5-15.5); Red Blood Count 2.97 m/uL (4.30-5.90); White Blood Count* 13.97 K/uL (4.50-11.00)
[2023-05-05 07:25] LABS: Slide Review Reflex No
[2023-05-05 07:39] LABS: INR 1.32 (0.91-1.10); Prothrombin Time 17.3 Seconds
[2023-05-05 07:40] LABS: Albumin* 2.7 g/dL (3.3-5.0); Chloride* 92 mmol/L (96-114); Sodium* 127 mmol/L (135-149)
[2023-05-05 07:43] LABS: Alanine Aminotransferase* 20 U/L (4-50); Alkaline Phosphatase* 152 U/L (40-150); Anion Gap 6 mEq/L (7-15); Aspartate Amino Transferase* 58 U/L (12-35); Bilirubin Total* 1.2 mg/dL (0.1-1.5); Blood Urea Nitrogen* 13 mg/dL (7-30); Carbon Dioxide* 29 mmol/L (20-32); Creatinine* 0.7 mg/dL (0.5-1.5); Est. Creatinine Clearance* 71.61; Estimated Glomerular Filt Rate 104 ml/min; Glucose* 136 mg/dL (60-115); Total Protein* 5.5 g/dL (6.0-8.3)
[2023-05-05 07:44] LABS: Calcium* 7.2 mg/dL (8.4-10.6); Phosphorus* 2.6 mg/dL (2.5-4.5)
[2023-05-05] MEDS: MULTIVITAMIN/MINERALS 1 TABLET 1 TAB PO (07:58)
[2023-05-05] MEDS: FOLIC ACID 1 MG TABLET PO (07:58)
[2023-05-05] MEDS: SODIUM CHLORIDE 1 GM TABLET PO (07:58)
[2023-05-05] MEDS: POTASSIUM CHLORIDE 10 MEQ CAPSULE ER 20 MEQ PO ×2 (07:58→18:40)
[2023-05-05] MEDS: GABAPENTIN 300 MG CAPSULE PO ×3 (07:58→21:21)
[2023-05-05] MEDS: SODIUM CHLORIDE 0.9 % (FLUSH) 10 ML SYRINGE 5 ML IVF ×2 (08:00→21:22)
[2023-05-05] MEDS: OMEPRAZOLE 20 MG CAPSULE DR 40 MG PO ×2 (08:02→21:21)
[2023-05-05] MEDS: FUROSEMIDE 20 MG TABLET PO ×2 (09:07→18:42)
[2023-05-05] MEDS: MAGNESIUM OXIDE 400 MG TABLET PO (09:07)
[2023-05-05] MEDS: SPIRONOLACTONE 25 MG TABLET 50 MG PO ×2 (09:07→18:41)
[2023-05-05] MEDS: THIAMINE 250 MG in 0.9 % SODIUM CHLORIDE 100 ml 100 ML 102.5 MG IVPB ×2 (09:09→14:07)
[2023-05-05 11:00] LABS: Hep A Ab, IgM Negative (Negative); Hep B Core Ab, IgM Negative (Negative); Hep B Surface Antigen Negative (Negative); Hep C Ab by CIA Index 0.05 IV; Hep C Ab by CIA Interp Negative (Negative)
--- NOTE | 2023-05-05 15:02 | P.IMPN_ITS ---
Progress Note: A&P Assessment and plan (1) Abdominal ascites: Problem details: - new, April 2023 - likely 2/2 ETOH use/liver disease (with resultant macrocytic anemia, elevated LFTs, elevated INR, MELD of 26 on 05/04/23) - paracentesis with Dr. Montiel of General Surgery on 05/03 (12L + 200mL), cultures ordered and pending - furosemide/spironolactone started today to see if he can tolerate this with his blood pressure and electrolytes - fluid restriction - no antibiotics indicated at this time, NGTD on paracentesis culture Status: Acute (2) Hyponatremia: Problem details: Gradually improving. Probably will not be able to achieve a normal serum sodium with his fairly severe liver disease. Continue to follow with spironolactone and furosemide therapy Status: Acute (3) Hypokalemia: Problem details: Replace and follow Status: Acute (4) Alcohol use disorder: Problem details: -daily vodka drinker (last drink 1 pm 05/01/23) -thiamine, multivitamin, folate replacement -[facility] protocols with ativan Gabapentin 300 mg t.i.d. Status: Acute (5) Hypertension: Problem details: Outpatient amlodipine atenolol hydrochlorothiazide are discontinued. Follow well treating with furosemide and spironolactone Status: Acute (6) Ruff's esophagus: Problem details: -has had surveillance EGDS -on PPI Status: Acute (7) Cirrhosis of liver: Problem details: Likely due to alcohol abuse. He will need to remain abstinent. His meld score is 23 giving him approximately a 15% 3 month mortality. Outpatient follow-up with hepatology Status: Acute (8) Hypomagnesemia: Problem details: Replace and follow Status: Acute Plan Continue in-hospital to monitor his response to initiation of therapy with spironolactone and furosemide and monitor electrolytes. Time Spent With Patient Total time spent: Total time spent today is 55 minutes, 40 minutes in coordination of care discussing with patient other providers ongoing evaluation and management of cirrhosis, alcohol use disorder, fluid electrolyte problems. Subjective Date Seen: 05/05/23 Interval history: Antonio was admitted to the hospital on 05/02/23 for new onset ascites and liver disease, likely related to chronic alcohol overuse. He was hyponatremic, hypokalemia, hypocalcemic, hypomagnesemic on admission (NA 115, has slowly corrected with hypertonic saline + desmopressin). Ascites is improved s/p paracentesis with Dr. Montiel on 05/03 (12L + 200mL taken off during procedure). Antonio has had no symptoms of ETOH withdrawal, does have some agitation regarding hospital stay (hoping to go home [place]). This morning, sodium is 124. Patient has no pain or other concerns for hospitalist team. No obvious alcohol withdrawal. He is on gabapentin 300 t.i.d. for prophylaxis of alcohol withdrawal Today patient's ascites is apparently reaccumulating. He otherwise has no concerns. He has refused physical therapy. Exam Narrative: Exam Narrative: He is alert and appears in no distress. Sclerae nonicteric. Oropharynx normal. Neck is supple out mass or adenopathy. Respirations are clear to auscultation. He does have some generalized muscle wasting. Abdominal examination notable for moderately distended abdomen with clearly present ascites. This is nontender. Extremities with again muscle wasting evidence. Trace edema in his legs. Mild fine tremor Const: Vital Signs, click to edit/add: Vital Signs - 24 hr 05/04/23 19:00 05/04/23 23:00 05/04/23 23:00 Temperature 97.5 F L 97.7 F Pulse Rate [Left R adial] 95 95 95 Respiratory Rate 18 20 18 Blood Pressure [Le ft Arm] 106/75 101/73 Pulse Oximetry 92 94 Oxygen Delivery Me thod Room Air Room Air 05/05/23 03:00 05/05/23 07:00 05/05/23 07:00 Temperature 97.8 F 98.5 F Pulse Rate [Left R adial] 90 90 90 Respiratory Rate 16 18 18 Blood Pressure [Le ft Arm] 107/79 107/77 Pulse Oximetry 91 93 Oxygen Delivery Me thod Room Air Room Air 05/05/23 08:00 05/05/23 11:00 Temperature 98.2 F Pulse Rate [Left R adial] 96 Respiratory Rate 18 Blood Pressure [Le ft Arm] 106/79 Pulse Oximetry 93 96 Oxygen Delivery Me thod Room Air Documenting provider has reviewed patient's vital signs: yes Labs Labs: Laboratory Results - last 24 hr 05/02/23 05/05/23 20:54 06:46 WBC 13.97 H RBC 2.97 L Hgb 10.6 L Hct 31.4 L MCV 106 H MCH 36 H MCHC 34 RDW Coeff of Song 14.7 Plt Count 291 Neut % (Auto) 84.6 H Lymph % (Auto) 7.2 L [place] % (Auto) 7.0 Eos % (Auto) 0.7 Baso % (Auto) 0.2 Neut # (Auto) 11.80 H Lymph # (Auto) 1.00 [place] # (Auto) 1.00 H Eos # (Auto) 0.10 Baso # (Auto) 0.00 Abs Immat Gran (auto) 0.00 Imm/Tot Granulo (auto) 0.3 INR 1.32 H Sodium 127 L Potassium 4.0 Chloride 92 L Carbon Dioxide 29 Anion Gap 6 L BUN 13 Creatinine 0.7 Estimated Creat Clear 71.61 Estimated GFR 104 Glucose 136 H Calcium 7.2 L Ionized Calcium Ga 1.00 L Phosphorus 2.6 Total Bilirubin 1.2 AST 58 H ALT 20 Alkaline Phosphatase 152 H Total Protein 5.5 L Albumin 2.7 L Hepatitis A IgM Ab Negative Hep Bs Antigen Negative Hep B Core IgM Ab Negative Hep C Ab Index (ESTELITA) 0.05 Hep C Ab Interp ESTELITA Negative Hepatitis Interpret See Note
[2023-05-05 16:28] LABS: Chloride* 96 mmol/L (96-114); Potassium* 3.9 mmol/L (3.6-5.1); Sodium* 131 mmol/L (135-149)
[2023-05-05 16:31] LABS: Anion Gap 9 mEq/L (7-15); Blood Urea Nitrogen* 14 mg/dL (7-30); Calcium* 7.5 mg/dL (8.4-10.6); Carbon Dioxide* 26 mmol/L (20-32); Creatinine* 0.8 mg/dL (0.5-1.5); Est. Creatinine Clearance* 71.61; Estimated Glomerular Filt Rate 100 ml/min; Glucose* 120 mg/dL (60-115)
--- NOTE | 2023-05-05 19:20 | PC.NURSE ---
Shift Note : Shift unremarkable. Pt in more pleasant spirits today. VS WNL and LS COA. Afebrile. Moving well independently. Mediocre appetite but willing to drink Ensure supplements at this time. Started diuretics this afternoon.
[2023-05-05] MEDS: ENOXAPARIN 40 MG/0.4 ML INJ SUBCUT (21:21)
[2023-05-05] MEDS: LACTULOSE 20 GM/30 ML PO (21:22)
[2023-05-06] VITALS (8 sets, daily range): BP systolic 103–126; BP diastolic 75–93; PULSE 91–111; RESP 16–22; TEMP 36.6–37.3; O2SAT 93–98
--- NOTE | 2023-05-06 06:09 | PC.NURSE ---
End of shift [id number]: Alert and oriented x 3, pleasant and cooperative with cares. Patient denies any pain or shortness of breath. Abdomen is round and distended, firm to the touch. Bowel sounds active x 4 quadrants. Trace pitting edema to BLE. Compliant with fluid restriction. Urine is clear, [place] in color and normal odor. Independent with ambulation, continent of bladder and bowel. Denies any dizziness or lightheadedness.
[2023-05-06 07:05] LABS: Basophils Percent Auto 0.3 % (0.0-3.0); Eosinophils Percent Auto 2.8 % (0.0-7.0); Hematocrit 32.6 % (37.0-53.0); Immature Granulocytes Pct Auto 0.3 %; Lymphocytes Percent Auto 10.3 % (20-44); Mean Corpuscular HGB Conc 34 gm/dL (32-36); Mean Corpuscular Hemoglobin 36 pg (26-34); Mean Corpuscular Volume 106 fL (80-100); Monocytes Percent Auto 7.8 % (0.0-11.0); Neutrophils Percent Auto 78.5 % (42.0-72.0); Platelet Count* 254 K/uL (140-440); RDW Coefficient of Variation % 14.9 % (11.5-15.5); Red Blood Count 3.08 m/uL (4.30-5.90); White Blood Count* 11.63 K/uL (4.50-11.00)
[2023-05-06 07:14] LABS: Slide Review Reflex No
[2023-05-06 07:30] LABS: Chloride* 97 mmol/L (96-114); Potassium* 4.3 mmol/L (3.6-5.1); Sodium* 128 mmol/L (135-149)
[2023-05-06 07:32] LABS: Creatinine* 0.7 mg/dL (0.5-1.5); Est. Creatinine Clearance* 71.61; Estimated Glomerular Filt Rate 104 ml/min
[2023-05-06 07:33] LABS: Anion Gap 5 mEq/L (7-15); Blood Urea Nitrogen* 14 mg/dL (7-30); Calcium* 7.4 mg/dL (8.4-10.6); Carbon Dioxide* 26 mmol/L (20-32); Glucose* 110 mg/dL (60-115)
[2023-05-06] MEDS: SPIRONOLACTONE 25 MG TABLET 100 MG PO (07:58)
[2023-05-06] MEDS: FUROSEMIDE 20 MG TABLET 40 MG PO (07:58)
[2023-05-06] MEDS: POTASSIUM CHLORIDE 10 MEQ CAPSULE ER 20 MEQ PO ×2 (07:59→17:37)
[2023-05-06] MEDS: FOLIC ACID 1 MG TABLET PO (07:59)
[2023-05-06] MEDS: GABAPENTIN 300 MG CAPSULE PO ×3 (07:59→20:31)
[2023-05-06] MEDS: LACTULOSE 20 GM/30 ML PO ×2 (08:00→20:31)
[2023-05-06] MEDS: OMEPRAZOLE 20 MG CAPSULE DR 40 MG PO ×2 (08:00→20:31)
[2023-05-06] MEDS: MULTIVITAMIN/MINERALS 1 TABLET 1 TAB PO (08:00)
[2023-05-06] MEDS: MAGNESIUM OXIDE 400 MG TABLET PO (08:00)
[2023-05-06] MEDS: SODIUM CHLORIDE 0.9 % (FLUSH) 10 ML SYRINGE 5 ML IVF ×2 (08:01→20:32)
--- NOTE | 2023-05-06 15:30 | P.IMPN_ITS ---
Progress Note: A&P Assessment and plan (1) Abdominal ascites: Problem details: - new, April 2023 - likely 2/2 ETOH use/liver disease (with resultant macrocytic anemia, elevated LFTs, elevated INR, MELD of 26 on 05/04/23) - paracentesis with Dr. Montiel of General Surgery on 05/03 (12L + 200mL), cultures ordered and pending - furosemide/spironolactone started today to see if he can tolerate this with his blood pressure and electrolytes - no antibiotics indicated at this time, NGTD on paracentesis culture Status: Acute (2) Hyponatremia: Problem details: Gradually improving. Probably will not be able to achieve a normal serum sodium with his fairly severe liver disease. Continue to follow with spironolactone and furosemide therapy Status: Acute (3) Hypokalemia: Problem details: Replace and follow Status: Acute (4) Alcohol use disorder: Problem details: -daily vodka drinker (last drink 1 pm 05/01/23) -thiamine, multivitamin, folate replacement -CIAZ protocols with no evidence of withdrawal. Gabapentin 300 mg t.i.d. for prophylaxis of withdrawal Status: Acute (5) Hypertension: Problem details: Outpatient amlodipine atenolol hydrochlorothiazide are discontinued. Follow hypertension while treating with furosemide and spironolactone Status: Acute (6) Ruff's esophagus: Problem details: -has had surveillance EGDS -on PPI Status: Acute (7) Cirrhosis of liver: Problem details: Likely due to alcohol abuse. He will need to remain abstinent. His meld score is 23 giving him approximately a 15% 3 month mortality. Outpatient follow-up with hepatology Status: Acute (8) Hypomagnesemia: Problem details: Replace and follow. Status: Acute Plan Continue in hospital for ongoing management of complications of cirrhosis and electrolyte abnormalities. Anticipate discharge to home tomorrow for close outpatient follow-up Time Spent With Patient Total time spent: Total time spent today is 35 minutes, 20 minutes in coordination of care discussing with patient other providers ongoing evaluation management of cirrhosis and electrolyte abnormalities Subjective Date Seen: 05/06/23 Interval history: Antonio was admitted to the hospital on 05/02/23 for new onset ascites and liver disease, likely related to chronic alcohol overuse. He was hyponatremic, hypokalemia, hypocalcemic, hypomagnesemic on admission (NA 115, has slowly corrected with hypertonic saline + desmopressin). Ascites is improved s/p paracentesis with Dr. Montiel on 05/03 (12L + 200mL taken off during procedure). Antonio has had no symptoms of ETOH withdrawal, does have some agitation regarding hospital stay (hoping to go home [place]). This morning, sodium is 124. Patient has no pain or other concerns for hospitalist team. No obvious alcohol withdrawal. He is on gabapentin 300 t.i.d. for prophylaxis of alcohol withdrawal Today patient's ascites is apparently reaccumulating. He otherwise has no concerns. He has refused physical therapy. He was initially very anxious to go home but now is willing to stay another day to stabilize his electrolytes and diuretic therapy Exam Narrative: Exam Narrative: He is alert and appears in no distress. Breathing is unlabored. Respirations are clear to auscultation. Cardiovascular: S1, S2, regular rate and rhythm. Abdomen: Abdomen is distended with apparent ascitic fluid. He has no tenderness. Extremities with no edema. Const: Vital Signs, click to edit/add: Vital Signs - 24 hr 05/05/23 19:00 05/05/23 23:00 05/05/23 23:00 Temperature 97.9 F 97.9 F Pulse Rate [Left R adial] 83 83 Respiratory Rate 20 18 18 Blood Pressure [Le ft Arm] 105/70 101/72 Pulse Oximetry 94 96 Oxygen Delivery Me thod Room Air Room Air 05/06/23 03:00 05/06/23 07:00 05/06/23 07:00 Temperature 97.8 F 98.3 F Pulse Rate [Left R adial] 91 94 94 Respiratory Rate 20 18 18 Blood Pressure [Le ft Arm] 105/76 119/81 Pulse Oximetry 94 96 Oxygen Delivery Me thod Room Air Room Air 05/06/23 08:00 05/06/23 11:00 Temperature 98.2 F Pulse Rate [Left R adial] 98 Respiratory Rate 18 Blood Pressure [Le ft Arm] 103/75 Pulse Oximetry 93 98 [facility] Documenting provider has reviewed patient's vital signs: yes Labs Labs: Laboratory Results - last 24 hr 05/05/23 05/06/23 16:07 06:29 WBC 11.63 H RBC 3.08 L Hgb 11.0 L Hct 32.6 L MCV 106 H MCH 36 H MCHC 34 RDW Coeff of Song 14.9 Plt Count 254 Neut % (Auto) 78.5 H Lymph % (Auto) 10.3 L [place] % (Auto) 7.8 Eos % (Auto) 2.8 Baso % (Auto) 0.3 Neut # (Auto) 9.10 H Lymph # (Auto) 1.20 [place] # (Auto) 0.90 Eos # (Auto) 0.30 Baso # (Auto) 0.00 Abs Immat Gran (auto) 0.00 Imm/Tot Granulo (auto) 0.3 Sodium 131 L 128 L Potassium 3.9 4.3 Chloride 96 97 Carbon Dioxide 26 26 Anion Gap 9 5 L BUN 14 14 Creatinine 0.8 0.7 Estimated Creat Clear 71.61 71.61 Estimated GFR 100 104 Glucose 120 H 110 Calcium 7.5 L 7.4 L
--- NOTE | 2023-05-06 17:53 | PC.NURSE ---
shift note : Pt friendly and cooperative today, VS WNL and LS COA. He denies pain or discomfort. Denies SOB. Verbalizes he believes his abdomen is more distended than yesterday. On assessment, abdomen is quite protuberant, BS active and pt endorses mild tenderness with palpation in RUQ. Eating most of his meals but chooses Ensure supplements for lunch versus a tray. He took 4 walks today throughout the halls and moves steadily on his feet. 4x loose/soft stools. [place] at bedside and brought [employer] for supper and functional tester typewriters updated daughter on POC via telephone. Hoping to discharge home tomorrow.
[2023-05-06] MEDS: ENOXAPARIN 40 MG/0.4 ML INJ SUBCUT (20:31)
[2023-05-07 05:00] VITALS: RESP 18
--- NOTE | 2023-05-07 05:35 | PC.NURSE ---
Patient is pleasant and cooperative with cares. Alert and oriented x 4. Denies any pain or shortness of breath. Abdomen continues to be large, round and firm to the touch. Appetite is fair, currently on high protein/high calorie diet, education provided on diet. Bowel sounds active x 4 quadrants, patient reports multiple stools per day, more frequent after addition of lactulose. Independent with ambulation. IV to left forearm leaking, IV dc'd.
[2023-05-07 06:38] LABS: Chloride* 98 mmol/L (96-114); Potassium* 4.5 mmol/L (3.6-5.1); Sodium* 130 mmol/L (135-149)
[2023-05-07 06:41] LABS: Anion Gap 7 mEq/L (7-15); Carbon Dioxide* 25 mmol/L (20-32); Creatinine* 0.7 mg/dL (0.5-1.5); Est. Creatinine Clearance* 71.61; Estimated Glomerular Filt Rate 104 ml/min
[2023-05-07 06:42] LABS: Blood Urea Nitrogen* 13 mg/dL (7-30); Calcium* 7.7 mg/dL (8.4-10.6); Glucose* 110 mg/dL (60-115)
[2023-05-07] MEDS: MULTIVITAMIN/MINERALS 1 TABLET 1 TAB PO (08:33)
[2023-05-07] MEDS: GABAPENTIN 300 MG CAPSULE PO (08:34)
[2023-05-07] MEDS: OMEPRAZOLE 20 MG CAPSULE DR 40 MG PO (08:34)
[2023-05-07] MEDS: atenoloL 50 MG TABLET PO (08:34)
[2023-05-07] MEDS: FOLIC ACID 1 MG TABLET PO (08:35)
[2023-05-07] MEDS: FUROSEMIDE 20 MG TABLET 80 MG PO (08:35)
[2023-05-07] MEDS: MAGNESIUM OXIDE 400 MG TABLET PO (08:35)
[2023-05-07] MEDS: POTASSIUM CHLORIDE 10 MEQ CAPSULE ER 20 MEQ PO (08:36)
[2023-05-07] MEDS: SPIRONOLACTONE 100 MG TABLET 200 MG PO (08:37)
[2023-05-07] MEDS: LACTULOSE 20 GM/30 ML PO (08:38)
[2023-05-07 08:59] VITALS: BP 131/88; PULSE 111; RESP 20; TEMP 36.6; O2SAT 96
[2023-05-07 09:00] VITALS: O2SAT 93
[2023-05-07 11:19] VITALS: BP 104/88; PULSE 98; RESP 18; TEMP 36.6; O2SAT 98
--- NOTE | 2023-05-07 12:37 | P.DS_ITS ---
DS: Providers Provider Date Seen: 05/07/23 Date of admission: 05/02/23 19:36 Primary care physician: Gary Leggett MD Admitting Clinician: Morgan Farley MD Attending Physician on discharge: Axel Beckham MD Date of Discharge: 05/07/23 DS: Diagnosis Discharge Diagnosis (1) Abdominal ascites: Status: Acute Problem details: - new, April 2023 - likely 2/2 ETOH use/liver disease (with resultant macrocytic anemia, elevated LFTs, elevated INR, MELD of 26 on 05/04/23) - paracentesis with Dr. Montiel of General Surgery on 05/03 (12L + 200mL), cultures ordered and pending - furosemide/spironolactone started . So far tolerating diuresis. Abdominal ascites appears to be gradually increasing again - no antibiotics indicated at this time, NGTD on paracentesis culture (2) Cirrhosis of liver: Status: Acute Problem details: Likely due to alcohol abuse. Viral hepatitis studies were negative. He will need to remain abstinent. His meld score is 23 giving him approximately a 15% 3 month mortality. Outpatient follow-up with hepatology. Will probably need liver transplant (3) Hypomagnesemia: Status: Acute Problem details: Continue to replace (4) Hypertension: Status: Acute Problem details: Outpatient amlodipine and hydrochlorothiazide are discontinued. Follow hypertension while treating with furosemide and spironolactone. Atenolol restarted due to tachycardia (5) Bilateral edema of lower extremity: Status: Acute Problem details: -see #5 (6) Alcohol use disorder: Status: Acute Problem details: Patient had no significant alcohol withdrawal during his hospital stay. He and his both indicate confidence that he will be able to be abstinent from alcohol going forward. Offered resources for professional help and he declined. Offered medication to reduce alcohol craving and he declined (7) Hypokalemia: Status: Acute Problem details: Replace and follow (8) Hyponatremia: Status: Acute Problem details: Gradually improving. Probably will not be able to achieve a normal serum sodium with his fairly severe liver disease. Continue to follow with spironolactone and furosemide therapy (9) Ruff's esophagus: Status: Acute Problem details: -has had surveillance EGDS -on PPI DS: Summary Status at Discharge Cognitive/behavioral status at discharge: 63-year-old male admitted to the hospital when he was found to be hyponatremic in the outpatient clinic. At that time he was noted to have lower extremity edema and prominent abdominal distension suggestive of ascites. He is admitted the hospital and started on diuretics. His lower extremity edema has entirely resolved. He had paracentesis to remove 12 L of ascitic fluid. His ascitic fluid was unremarkable without evidence of infection. He did appear to headache gradually reaccumulate ascitic fluid during his hospital stay. Lower extremity edema has resolved. Hyponatremia improved with routine spironolactone plus furosemide therapy. He had mild hypokalemia which was managed with supplemental potassium and mild hypo magnesemia which was managed with supplemental magnesium. Functional status at discharge: independent ambulation Overall status at discharge: patient is progressing back to baseline Time Spent with Patient Time attestation: Total time spent providing and/or coordinating discharge services: Time spent: Greater than 30 minutes Exam Narrative: Exam Narrative: He is alert and appears in no distress. Respirations are clear to auscultation. Cardiovascular: S1, S2, regular rate and rhythm. Abdomen is distended with ascitic fluid. It is soft and without tenderness. Extremities with apparent muscle atrophy but no edema Const: Vital Signs, click to edit/add: Vital Signs - 24 hr 05/06/23 15:00 05/06/23 15:00 05/06/23 19:00 Temperature 99.2 F 97.8 F Pulse Rate [Left R adial] 98 98 111 H Pulse Rate [Pulse Oximeter] Respiratory Rate 18 18 22 Blood Pressure [Le ft Arm] 114/93 H 126/89 Blood Pressure [Ri ght Arm] Pulse Oximetry 97 98 Oxygen Delivery Me thod Room Air Room Air 05/06/23 23:00 05/06/23 23:09 05/07/23 05:00 Temperature Pulse Rate [Left R adial] Pulse Rate [Pulse Oximeter] Respiratory Rate 22 16 18 Blood Pressure [Le ft Arm] Blood Pressure [Ri ght Arm] Pulse Oximetry Oxygen Delivery De thod 05/07/23 08:59 05/07/23 09:00 05/07/23 11:19 Temperature 97.9 F 97.9 F Pulse Rate [Left R adial] Pulse Rate [Pulse Oximeter] 111 H 98 Respiratory Rate 20 18 Blood Pressure [Le ft Arm] 104/88 Blood Pressure [Ri ght Arm] 131/88 Pulse Oximetry 96 93 98 Oxygen Delivery Me thod Room Air Documenting provider has reviewed patient's vital signs: yes DS: Data Data Completed and Pending Labs on day of discharge: Labs from last 24 hours 05/07/23 06:13 Sodium 130 L Potassium 4.5 Chloride 98 Carbon Dioxide 25 Anion Gap 7 BUN 13 Creatinine 0.7 Estimated Creat Clear 71.61 Estimated GFR 104 Glucose 110 Calcium 7.7 L Preliminary micro results at discharge 05/03/23 11:08 Body Fluid Culture - Preliminary Ascites Fluid NO GROWTH AFTER 96 HOURS 05/02/23 17:44 Blood Culture - Preliminary Blood NO GROWTH AFTER 96 HOURS 05/02/23 17:38 Blood Culture - Preliminary Blood NO GROWTH AFTER 96 HOURS Discharge Plan Discharge Disposition: Home, Self-Care Date of Admission: 05/02/23 19:36 Attending Provider on Discharge: Ayush Beckham Primary Care Provider: Gary Leggett Condition: Improved Anticipated Discharge Date/Time: 05/07/23 10:00 Discharge Medications: New potassium chloride 10 mEq Capsule, Extended Release 20 meq PO DAILY Qty: 60 0RF magnesium oxide 400 mg (241.3 mg magnesium) Tablet 400 mg PO DAILY Qty: 30 0RF furosemide 20 mg Tablet 40 mg PO DAILY@0800 Qty: 60 0RF spironolactone 100 mg tablet 100 mg PO QAM Qty: 30 0RF lactulose 10 gram/15 mL solution 20 g PO DAILY Qty: 946 2RF Continued omeprazole 40 mg capsule,delayed release(DR/EC) 40 mg PO BID Qty: 180 3RF tadalafil [Cialis] 5 mg tablet 5 mg PO DAILY atenolol 100 mg tablet 100 mg PO DAILY Qty: 90 2RF Discontinued furosemide 20 mg tablet 20 mg PO .Daily as needed PRN (Reason: edema) Qty: 30 3RF aspirin 81 mg tablet,chewable 81 mg PO DAILY amlodipine 10 mg tablet 10 mg PO DAILY Qty: 90 3RF hydrochlorothiazide 25 mg tablet 25 mg PO DAILY Qty: 90 3RF Discharge Orders: Discharge Order (Routine); Ordered 05/07/23 Ordered By: Ayush Beckham Patient Education: Spironolactone (By mouth), Furosemide (By mouth), Potassium Chloride (By mouth), Lactulose (By mouth), Magnesium (By mouth) Additional Instructions: You have severe liver disease with cirrhosis. He will likely need to arrange for repeat paracentesis, taking fluid out of your abdomen with a needle. How often this happens will depend on how well the diuretics work. You need to see a liver specialist. You may need a liver transplant. You must stop drinking alcohol to keep your liver disease from getting worse. This is difficult and generally people benefit from professional help. We can offer resources for help. Return to [facility] on May 10 to have a blood test, basic metabolic panel. After your blood test Dr Beckham would like to meet with you. Activity Level: Activity as Tolerated Discharge Diet: Regular and 2 gm Sodium Follow Up Appointments: Gary Leggett MD [Primary Care Provider] - 05/14/23 1:15 pm ([facility] for follow-up, and check basic metabolic panel.) Forms: [employer] Info Instructions
--- NOTE | 2023-05-07 13:09 | PC.NURSE ---
Patient alert and oriented. Independent with transfers. VSS. Denied any pain. Abdominal paracentesis puncture site periodically draining trace amount of fluid. Dr Beckham updated. Per Dr Beckham bandage was applied to site. Pateint discharged at 1310. Patient ambulated out of med/surg accompanied by his , daughter and granddaughter. He declined to have staff accompany him or wheel him out of facility.
== END 2023-05-07 13:10 | disposition home or self-care (01) | DRG 433 ==
LOC: ED 19:34 → MEDSURG 19:37
PROVIDERS: Family Medicine; Internal Medicine; Admitting Provider Family Medicine; Emergency Provider Student in an Organized Health Care Education/Training Program; PCP Internal Medicine; Visit Provider Family Medicine
DX: K70.31 Alcoholic cirrhosis of liver with ascites (principal); E87.1 Hypo-osmolality and hyponatremia; F10.288 Alcohol dependence with other alcohol-induced disorder; K70.40 Alcoholic hepatic failure without coma; E87.6 Hypokalemia; K22.70 Barrett's esophagus without dysplasia; E83.42 Hypomagnesemia; R00.0 Tachycardia, unspecified; R60.0 Localized edema; K58.9 Irritable bowel syndrome, unspecified; K57.30 Diverticulosis of large intestine without perforation or abscess without bleeding; N52.9 Male erectile dysfunction, unspecified; I10 Essential (primary) hypertension; E78.5 Hyperlipidemia, unspecified
CPT/HCPCS: 36415; 49083; 71046; 74177; 80048; 80053; 80074; 80076; 80306; 82140; 82330; 82803; 82977; 83605; 83690; 83735; 83880; 84100; 84132; 84157; 84295; 84443; 84484; 85025; 85610; 87040; 87070; 87081; 89051; 93005; 99283; 99285; A9153; A9270; C9113; J0610; J1650; J2597; J3411; J3475; J7030; J7131; P9047; Q9967

== ENCOUNTER 2023-05-09 11:32 | Outpatient (CLI) | payer OTHER, SELFPAY ==
[2023-05-09 11:40] VITALS: BP 112/72; PULSE 90; RESP 18; O2SAT 95
--- NOTE | 2023-05-09 12:27 | W.PM.PARA ---
Paracentesis Date Date: 05/10/23 Procedure Note Procedure: Paracentesis with Ultrasound Guidance Type of paracentesis: Therapeutic Initial or Repeat?: Repeat Surgeon: Leticia Larson Indications: 63-year-old male with liver cirrhosis was recently discharged from the hospital with large volume ascites. Patient underwent paracentesis last week with 12 L removed. Patient states that he was getting more uncomfortable and having early satiety. Patient was then recommended to have a repeat therapeutic paracentesis. Patient is not on blood thinners. His INR and platelets were within normal range. The procedure was discussed with the patient in detail. The risks associated procedure including infection, bleeding, and injury to intra-abdominal organs were all discussed with the patient, and he agreed to proceed. Labs and Cytology Sent:: No Albumin infused: No Procedure Note:: Prior to the procedure, the risks and benefits of the procedure were discussed and an informed consent was obtained. Patient identification was confirmed and TIME OUT was performed. An ultrasound was brought onto the field and an easily accessible pocket of ascites was identified that was away from intraabdominal organs. The patient's abdomen in the left lower quadrant was prepped and draped in the usual sterile fashion. 1% Lidocaine was used to anesthetize the skin, soft tissues and peritoneum over the proposed needle insertion site. A skin incision was made with a scalpel just large enough to fit the needle. The needle with the paracentesis catheter was advanced into the abdomen and a straw colored not cloudy and not bloody fluid was aspirated into the syringe. The needle was then withdrawn and the catheter was left in place. The catheter was then connected to the drainage tubing. 1800 cc of straw colored fluid was drained. This was not sent to the lab since fluid was sent last week. Post procedure ultrasound revealed no residual ascitic fluid. The catheter was then removed and the skin was closed with Dermabond. Patient also had some fluid leaking from his right-sided abdomen paracentesis that was done last week. This was prepped with sterile prep. Dermabond was applied over this incision as well. Patient tolerated procedure well and there were no immediate complications. Patient's vital signs were stable throughout the procedure and no albumin was infused. Recomendation: Discharge to home (ambulatory) and return to normal activities tomorrow. Follow up with referring provider as needed.
[2023-05-09 12:30] VITALS: BP 105/72; PULSE 83; RESP 18; O2SAT 98
== END 2023-05-09 12:32 | disposition home or self-care (01) ==
LOC: OP CLINIC 11:33
PROVIDERS: PCP Internal Medicine; Visit Provider Surgery
DX: R18.8 Other ascites (principal)
CPT/HCPCS: 49083

== ENCOUNTER 2023-05-10 10:56 | Outpatient (CLI) | payer OTHER, SELFPAY ==
[2023-05-10 11:30] LABS: Chloride* 101 mmol/L (96-114); Potassium* 4.2 mmol/L (3.6-5.1); Sodium* 130 mmol/L (135-149)
[2023-05-10 11:33] LABS: Anion Gap 7 mEq/L (7-15); Blood Urea Nitrogen* 13 mg/dL (7-30); Calcium* 8.2 mg/dL (8.4-10.6); Carbon Dioxide* 22 mmol/L (20-32); Creatinine* 0.8 mg/dL (0.5-1.5); Estimated Glomerular Filt Rate 100 ml/min; Glucose* 188 mg/dL (60-115)
--- NOTE | 2023-05-10 11:55 | PM.EN ---
Chart Event Note Date Seen: 05/10/23 Chart Event Note: 63-year-old male was hospitalized with ascites. Back in the hospital today for lab tests. Sodium is 130 and stable. His potassium is 4.2. Will continue same doses of spironolactone 100 mg and Lasix 40 mg daily. Yesterday he had paracentesis. He is still feeling bloated. Next week in clinic he can discuss with Dr. Leggett whether to increase his diuretic, repeat paracentesis or both. He was placed on lactulose. He reports he had relatively explosive diarrhea yesterday so I have cut his lactulose dose in half.
== END 2023-05-10 10:57 | disposition home or self-care (01) ==
LOC: LAB 10:57
PROVIDERS: PCP Internal Medicine; Visit Provider Family Medicine
DX: R18.8 Other ascites (principal)
CPT/HCPCS: 36415; 80048

== ENCOUNTER 2023-05-18 13:49 | Outpatient (CLI) | payer OTHER, SELFPAY ==
[2023-05-18 14:00] VITALS: BP 106/69; PULSE 79; RESP 16; O2SAT 95
[2023-05-18 14:41] VITALS: BP 114/71; PULSE 80; RESP 18; O2SAT 97
[2023-05-18 14:56] VITALS: BP 120/78; PULSE 80; RESP 18; O2SAT 98
--- NOTE | 2023-05-18 15:04 | PM.PROC ---
Procedure Note Time Seen by Provider: 15:05 Date Seen: 05/18/23 Provider Contact Time: 15:05 Date of procedure: 05/18/23 Will [facility] bill your pro fee for this procedure?: Yes Pre-op diagnosis: Ascites Post-op diagnosis: same Procedure: Paracentesis Procedure Description: After explaining the risks and benefits of the procedure and with the patient in the recumbent position. I did sterilely prepare the right lower quadrant after which I did inject 2% lidocaine into the region. I then made a 1 cm incision through which I advanced the paracentesis needle and catheter into the peritoneal space. [place] fluid was then aspirated and then directed to a series of 1 liter vacuum containers until a total of 5900 cc of fluid was removed. Once flow stopped we then removed the catheter and dressed the wound. Pt tolerated the procedure well. Anesthesia: local Pathology: none sent Condition: stable Disposition: other
== END 2023-05-18 15:05 | disposition home or self-care (01) ==
LOC: OP CLINIC 13:49
PROVIDERS: PCP Internal Medicine; Visit Provider Internal Medicine
DX: R18.8 Other ascites (principal)
CPT/HCPCS: 49083; P9047

== ENCOUNTER 2023-05-23 10:24 | Outpatient (CLI) | payer OTHER, SELFPAY ==
[2023-05-23 10:41] LABS: Basophils Absolute Auto 0.08 K/uL (0.00-0.30); Basophils Percent Auto 1.2 % (0.0-3.0); Eosinophils Absolute Auto 0.21 K/uL (0.00-0.50); Hematocrit 35.8 % (37.0-53.0); Hemoglobin* 11.8 gm/dL (13.5-17.5); Immature Granulocytes Abs Auto 0.01 K/uL (0.00-0.30); Immature Granulocytes Pct Auto 0.1 %; Lymphocytes Percent Auto 13.1 % (20-44); Mean Corpuscular HGB Conc 33 gm/dL (32-36); Mean Corpuscular Hemoglobin 35 pg (26-34); Mean Corpuscular Volume 106 fL (80-100); Monocytes Percent Auto 5.5 % (0.0-11.0); Neutrophils Percent Auto 77.1 % (42.0-72.0); Platelet Count* 418 K/uL (140-440); RDW Coefficient of Variation % 13.6 % (11.5-15.5); Red Blood Count 3.38 m/uL (4.30-5.90); White Blood Count* 6.89 K/uL (4.50-11.00)
[2023-05-23 10:55] LABS: Albumin* 3.4 g/dL (3.3-5.0)
[2023-05-23 10:56] LABS: Chloride* 101 mmol/L (96-114); Potassium* 4.7 mmol/L (3.6-5.1); Sodium* 132 mmol/L (135-149)
[2023-05-23 10:58] LABS: Anion Gap 6 mEq/L (7-15); Aspartate Amino Transferase* 53 U/L (12-35); Carbon Dioxide* 25 mmol/L (20-32); Creatinine* 0.7 mg/dL (0.5-1.5); Estimated Glomerular Filt Rate 104 ml/min
[2023-05-23 10:59] LABS: Alanine Aminotransferase* 25 U/L (4-50); Alkaline Phosphatase* 123 U/L (40-150); Blood Urea Nitrogen* 11 mg/dL (7-30); Calcium* 8.9 mg/dL (8.4-10.6); Glucose* 183 mg/dL (60-115); Slide Review Reflex No; Total Protein* 6.7 g/dL (6.0-8.3)
[2023-05-23 11:00] LABS: INR 1.15 (0.91-1.10); Prothrombin Time 15.4 Seconds
== END 2023-05-23 10:25 | disposition home or self-care (01) ==
PROVIDERS: PCP Internal Medicine; Visit Provider Internal Medicine
DX: K72.90 Hepatic failure, unspecified without coma (principal); E87.1 Hypo-osmolality and hyponatremia
CPT/HCPCS: 36415; 80053; 85025; 85610

== ENCOUNTER 2023-06-01 13:43 | Outpatient (CLI) | payer OTHER, SELFPAY ==
[2023-06-01 13:56] VITALS: BP 110/72; PULSE 75; RESP 20; O2SAT 100
[2023-06-01 14:05] VITALS: BP 111/67; PULSE 78; RESP 18; O2SAT 99
[2023-06-01 14:20] VITALS: BP 108/72; PULSE 76; RESP 16; O2SAT 99
[2023-06-01 14:30] VITALS: BP 110/70; PULSE 75; RESP 18; O2SAT 99
[2023-06-01 14:35] VITALS: BP 115/70; PULSE 75; RESP 16; O2SAT 100
--- NOTE | 2023-06-01 14:36 | P.PCN_ITS ---
Procedure Note Time Seen by Provider: 14:36 Date Seen: 06/01/23 Provider Contact Time: 14:36 Date of procedure: 06/01/23 [address] [facility] bill your pro fee for this procedure?: Yes Pre-op diagnosis: Ascites Procedure: Paracentesis Procedure Description: With the patient in the recumbent and rotated to the right position and after direct ultrasound visualization of his ascites I did perform of paracentesis in the right lower quadrant. The area was sterilized and anesthetized in the usual fashion. I then inserted a paracentesis needle with a catheter in place into the right lower quadrant. Flow was then directed to a series of Vacutainer bottles until a total of 4 L of reddish sharma liquid was removed. Once the flow stopped at 4 L I did remove the catheter and sterilely dressed to the wound. He is instructed on wound care and will be in contact with me over the next week or to to set up follow-up. Surgeon: Oleksandr Estimated blood loss (mL): 2 Pathology: none sent Condition: stable Disposition: other (Home)
== END 2023-06-01 14:48 | disposition home or self-care (01) ==
LOC: US 13:48
PROVIDERS: PCP Internal Medicine; Visit Provider Internal Medicine
DX: R18.8 Other ascites (principal)
CPT/HCPCS: 49083

== ENCOUNTER 2023-06-13 07:34 | Outpatient (CLI) | payer BC, SELFPAY | END 2023-06-13 07:35 | disposition home or self-care (01) | PROVIDERS: PCP Internal Medicine; Visit Provider Internal Medicine | DX: E87.1 Hypo-osmolality and hyponatremia (principal); I10 Essential (primary) hypertension; E78.5 Hyperlipidemia, unspecified; K74.60 Unspecified cirrhosis of liver | CPT/HCPCS: 80053; 85610 ==

== ENCOUNTER 2023-06-22 10:45 | Outpatient (CLI) | payer BC, SELFPAY ==
[2023-06-22 10:47] VITALS: BP 114/77; PULSE 68; RESP 16; TEMP 36.9; O2SAT 99
== END 2023-06-22 11:13 | disposition home or self-care (01) ==
LOC: US 10:45
PROVIDERS: PCP Internal Medicine; Visit Provider Internal Medicine
DX: R18.8 Other ascites (principal)
CPT/HCPCS: 76705

== ENCOUNTER 2023-06-28 11:08 | Outpatient (CLI) | payer BC, SELFPAY | END 2023-06-28 11:09 | disposition home or self-care (01) | LOC: NFLDREF 07-02 12:35 | PROVIDERS: PCP Internal Medicine; Referring Provider Internal Medicine; Visit Provider Internal Medicine | DX: R18.8 Other ascites (principal) | CPT/HCPCS: 80053; 85610 ==

== ENCOUNTER 2023-08-21 13:08 | Outpatient (CLI) | payer BC, SELFPAY | END 2023-08-21 13:09 | disposition home or self-care (01) | PROVIDERS: PCP Internal Medicine; Visit Provider Internal Medicine | DX: K74.60 Unspecified cirrhosis of liver (principal) | CPT/HCPCS: 80053; 85610 ==

== ENCOUNTER 2023-10-03 10:31 | Outpatient (CLI) | payer BC, SELFPAY | END 2023-10-03 10:32 | disposition home or self-care (01) | LOC: NFLDREF 10-04 06:10 | PROVIDERS: PCP Internal Medicine; Referring Provider Internal Medicine; Visit Provider Internal Medicine | DX: K74.60 Unspecified cirrhosis of liver (principal) | CPT/HCPCS: 80053; 85610; 86704; 86705 ==

== ENCOUNTER 2023-10-03 10:42 | Outpatient (CLI) | payer BC, SELFPAY ==
--- NOTE | 2023-10-03 11:00 | US_ITS ---
Patient: ERIKA MURPHY Facility:?[facility] Patient ID:?[id number] Site Patient ID:?[id number]. Site :?[id number] Study:?US-Abdomen RUQ-10/03/2023 11:37:33 AM Ordering Physician:?RIZWAN BEARD M.D. Final Report: INDICATION: Cirrhosis of the liver COMPARISON: CT 05/02/2023 TECHNIQUE: Real time wood scale imaging and color Doppler analysis was performed of the right upper quadrant. FINDINGS: The liver is diffusely coarsened in echotexture with a macro lobular contour consistent with cirrhosis. No intrahepatic mass. The liver measures 15.6 cm in length. There is a normal appearance of the hepatic IVC and proximal abdominal aorta. There is mild ascites. The gallbladder is of normal size and there is no evidence of intraluminal stones or sludge. The gallbladder wall measures 2.7 mm in thickness. The common bile duct is of normal size and measures 6.3 mm in diameter at the level of the lori hepatis. The pancreas is not well visualized. There is no evidence of a stone or hydronephrosis within the right kidney. The right kidney measures 10.1 cm in length. IMPRESSION: Cirrhotic liver with mild ascites. Normal gallbladder. Dictated by Marc Castle MD @ 10/04/2023 5:33:09 AM Signed by:?Marc Castle MD @10/04/2023 5:33:09 AM (Electronic Signature)
== END 2023-10-03 10:43 | disposition home or self-care (01) ==
LOC: US 10:43
PROVIDERS: PCP Internal Medicine; Visit Provider Internal Medicine
DX: K74.60 Unspecified cirrhosis of liver (principal); R18.8 Other ascites
CPT/HCPCS: 76705; 80053; 85610

== ENCOUNTER 2023-12-10 09:31 | Outpatient (CLI) | payer BC, SELFPAY | END 2023-12-10 09:32 | disposition home or self-care (01) | PROVIDERS: PCP Internal Medicine; Visit Provider Internal Medicine | DX: K72.90 Hepatic failure, unspecified without coma (principal) | CPT/HCPCS: 80053; 85610 ==

== ENCOUNTER 2024-06-25 10:55 | Outpatient (CLI) | payer OTHER, SELFPAY | END 2024-06-25 10:56 | disposition home or self-care (01) | LOC: NFLDREF 10:57 | PROVIDERS: PCP Internal Medicine; Visit Provider Internal Medicine | DX: K72.90 Hepatic failure, unspecified without coma (principal) | CPT/HCPCS: 80053 ==

== ENCOUNTER 2024-06-26 10:36 | Outpatient (CLI) | payer OTHER, SELFPAY ==
--- NOTE | 2024-06-26 10:45 | CRLHL7_ITS ---
For Patients: As a result of the Century Cures Act, medical imaging exams and procedure reports are released immediately into your electronic medical record. You may view this report before your referring provider. If you have questions, please contact your health care provider. INDICATION: Cirrhosis COMPARISON: none TECHNIQUE: Real time wood scale imaging and color Doppler analysis was performed of the right upper quadrant. FINDINGS: The liver echotexture is coarsened. The liver measures 18.9 cm. No intrahepatic mass. Main portal vein is 1.4 cm. Main portal vein is patent. Antegrade flow is noted although some retrograde flow may also be present. No portal vein thrombosis. There is a normal appearance of the hepatic IVC and proximal abdominal aorta. There is no evidence of ascites. The gallbladder is of normal size and there is no evidence of intraluminal stones or sludge. The gallbladder wall measures 3.0 mm in thickness. The common bile duct is of normal size and measures 5.8 mm in diameter at the level of the lori hepatis. The visualized pancreas appears normal. There is no evidence of a stone or hydronephrosis within the right kidney. The right kidney measures 9.8 cm in length. IMPRESSION: Cirrhotic liver with no evidence of intrahepatic mass or ascites. Patent portal vein with possible developing portal hypertension. Dictated by Marc Castle MD @ 06/26/2024 12:08:29 PM (Electronically Signed)
== END 2024-06-26 10:37 | disposition home or self-care (01) ==
LOC: US 10:39
PROVIDERS: PCP Internal Medicine; Visit Provider Internal Medicine
DX: K74.60 Unspecified cirrhosis of liver (principal)
CPT/HCPCS: 76705

== ENCOUNTER 2025-05-28 08:46 | Outpatient (CLI) | payer OTHER, SELFPAY | END 2025-05-28 08:47 | disposition home or self-care (01) | PROVIDERS: PCP Internal Medicine; Visit Provider Internal Medicine | DX: K74.60 Unspecified cirrhosis of liver (principal) | CPT/HCPCS: 80053; 80061 ==